=== PATIENT | male | born 1955 | race Caucasian/White ===

== ENCOUNTER 2019-05-30 15:43 | Inpatient (IN) | payer OTHER ==
[~2019-05-30] VITALS: Ht 170.2 cm; Wt 74.8 kg
[2019-05-30 17:00] VITALS: BP 145/80
[2019-05-30] MEDS ORDERED: FLUT1DIS29 IH (18:59)
[2019-05-30] MEDS ORDERED: DULO60CA45 PO (18:59)
[2019-05-30] MEDS ORDERED: OLAN5TAB3 PO (18:59)
[2019-05-30 19:50] VITALS: BP 125/60
[2019-05-30] MEDS: OLANZAPINE 5 MG TABLET PO SCH (21:00)
[2019-05-30] MEDS ORDERED: OLANZAPINE 5 MG TABLET ONE (22:30)
[2019-05-31 04:49] LABS: *BILIRUBIN,URIN NEGATIVE (NEGATIVE); *BLOOD, URINE NEGATIVE (NEGATIVE); *CLARITY,URINE CLEAR (CLEAR); *COLOR,URINE YELLOW (YELLOW); *KETONES,URINE NEGATIVE (NEGATIVE); LEUKOCYTE ESTERASE ,URINE NEGATIVE (NEGATIVE); NITRITE, URINE NEGATIVE (NEGATIVE); PH,URINE 7.5 (5.0-8.0); UGLUCOSE NEGATIVE (NEGATIVE)
[2019-05-31 05:04] LABS: BACTERIA,URINE NONE SEEN /HPF (NONE SEEN); RBC,URINE 0-3 /HPF (0-3); SQUAMOUS EPITHELIAL CELL,UR FEW /HPF (NONE SEEN); WBC,URINE NONE SEEN /HPF (0-3)
[2019-05-31 05:52] VITALS: BP 150/78
[2019-05-31 06:53] LABS: BASOPHILS # (AUTO) 0.1 K/uL (0.0-8.0); BASOPHILS % (AUTO) 0.7 % (0.0-2.0); EOSINOPHILS # (AUTO) 0.4 K/uL (0.0-0.7); HEMATOCRIT 39.3 % (36.7-47.1); HEMOGLOBIN 13.8 g/dL (12.5-16.3); LYMPHOCYTES # (AUTO) 3.3 K/uL (20.0-40.0); LYMPHOCYTES % (AUTO) 28.6 % (20.5-51.5); MEAN CORPUSCULAR HEMOGLOBIN 28.8 uug (23.8-33.4); MEAN CORPUSCULAR HGB CONC 35 g/dL (32.5-36.3); MONOCYTES # (AUTO) 0.9 K/uL (2.0-10.0); MONOCYTES % (AUTO) 7.7 % (0.0-11.0); PLATELET COUNT (AUTO) 187 K/uL (152-348); WHITE BLOOD COUNT (AUTO) 11.6 K/uL (3.6-10.2)
[2019-05-31 07:08] LABS: THYROID STIMULATING HORMONE 3.923 mIU/mL (0.358-3.740)
[2019-05-31 07:24] LABS: BILIRUBIN,TOTAL 0.5 mg/dL (0.2-1.0); CREATININE 0.8 mg/dL (0.6-1.3); POTASSIUM 3.9 mmol/L (3.5-5.1); TOTAL PROTEIN, SERUM 7.1 g/dL (6.4-8.2)
[2019-05-31] MEDS ORDERED: FLUTICASONE/SALMETEROL 500/50 EACH DISK.W.DEV IH SCH (09:00)
[2019-05-31] MEDS ORDERED: METHADONE HCL 10 MG TABLET PO SCH ×3 (09:00→17:00)
[2019-05-31] MEDS: METHADONE HCL 10 MG TABLET PO SCH ×2 (09:30→17:11)
[2019-05-31] MEDS: DULOXETINE 60 MG CAPSULE.DR PO SCH (09:30)
[2019-05-31] MEDS: FLUTICASONE/VILANTEROL 1 EACH BLST.W.DEV INH SCH (09:30)
[2019-05-31] MEDS: ATORVASTATIN 20 MG TABLET PO SCH (20:18)
[2019-05-31] MEDS: ENOXAPARIN SODIUM 40 MG/0.4 ML DISP.SYRIN SQ SCH (20:19)
[2019-05-31] MEDS: OLANZAPINE 5 MG TABLET PO SCH (20:19)
[2019-05-31 20:33] VITALS: BP 129/77
[2019-06-01] MEDS ORDERED: LORAZEPAM 1 MG TABLET PO ONE (03:00)
[2019-06-01] MEDS ORDERED: IBUPROFEN 600 MG TABLET PO ONE (03:00)
[2019-06-01 05:27] VITALS: BP 140/63
[2019-06-01 08:06] LABS: TRIIODOTHYRONINE, FREE 2.8 pg/mL (2.0-4.4)
[2019-06-01] MEDS: DULOXETINE 60 MG CAPSULE.DR PO SCH (09:09)
[2019-06-01] MEDS: METHADONE HCL 10 MG TABLET PO SCH ×2 (09:12→17:22)
[2019-06-01] MEDS: FLUTICASONE/VILANTEROL 1 EACH BLST.W.DEV INH SCH (09:13)
[2019-06-01 11:33] VITALS: BP 138/82
[2019-06-01] MEDS: ENOXAPARIN SODIUM 40 MG/0.4 ML DISP.SYRIN SQ SCH (21:18)
[2019-06-01] MEDS: ATORVASTATIN 20 MG TABLET PO SCH (21:18)
[2019-06-01] MEDS: OLANZAPINE 5 MG TABLET PO SCH (21:18)
[2019-06-01 21:43] VITALS: BP 118/65
[2019-06-02] MEDS: OXYCODONE HCL 5 MG TABLET PO PRN ×2 (00:46→09:09)
[2019-06-02] MEDS ORDERED: TRAZODONE 100 MG TABLET ONE (01:20)
[2019-06-02] MEDS: TRAZODONE 100 MG TABLET PO SCH ×2 (01:28→21:00)
[2019-06-02] MEDS: ALBUTEROL SULFATE 2.5 MG/ 0.5 ML NEBU NEB SCH ×5 (07:35→19:24)
[2019-06-02] MEDS: IPRATROPIUM BROMIDE 0.5 MG/2.5 ML NEBU NEB SCH ×5 (07:35→19:24)
[2019-06-02 07:50] VITALS: BP 111/54
[2019-06-02] MEDS: DULOXETINE 60 MG CAPSULE.DR PO SCH (09:01)
[2019-06-02] MEDS: FLUTICASONE/VILANTEROL 1 EACH BLST.W.DEV INH SCH (09:02)
[2019-06-02] MEDS: METHADONE HCL 10 MG TABLET PO SCH ×2 (09:05→17:18)
[2019-06-02 15:59] VITALS: BP 112/61
[2019-06-02] MEDS: ENOXAPARIN SODIUM 40 MG/0.4 ML DISP.SYRIN SQ SCH (21:00)
[2019-06-02] MEDS: ATORVASTATIN 20 MG TABLET PO SCH (21:00)
[2019-06-02] MEDS: OLANZAPINE 5 MG TABLET PO SCH (21:00)
[2019-06-02 21:32] VITALS: BP 124/76
[2019-06-03 05:53] VITALS: BP 142/75
[2019-06-03] MEDS: ALBUTEROL SULFATE 2.5 MG/ 0.5 ML NEBU NEB SCH ×3 (07:16→19:08)
[2019-06-03] MEDS: IPRATROPIUM BROMIDE 0.5 MG/2.5 ML NEBU NEB SCH ×3 (07:16→19:07)
[2019-06-03] MEDS ORDERED: GUAIFENESIN/DEXTROMETHORPHAN 5 ML UDC PO PRN (08:15)
[2019-06-03] MEDS: DULOXETINE 60 MG CAPSULE.DR PO SCH (08:38)
[2019-06-03] MEDS: METHADONE HCL 10 MG TABLET PO SCH ×2 (08:38→18:22)
[2019-06-03] MEDS: FLUTICASONE/VILANTEROL 1 EACH BLST.W.DEV INH SCH (08:50)
[2019-06-03 09:20] VITALS: BP 100/61
[2019-06-03 11:10] LABS: *ANTI-SCLERODERMA-70 AB 0.2 AI (0.0-0.9); *SJOGREN'S ANTI-SS-A <0.2 AI (0.0-0.9); *SJOGREN'S ANTI-SS-B <0.2 AI (0.0-0.9); *SMITH ANTIBODIES <0.2 AI (0.0-0.9); ANTI-DNA(DS) AB, QN <1 IU/mL (0-9)
[2019-06-03] MEDS: OXYCODONE HCL 5 MG TABLET PO PRN ×2 (15:09→23:13)
[2019-06-03] MEDS ORDERED: MIRALAX 17 GM POWD.PACK PO PRN (16:00)
[2019-06-03] MEDS ORDERED: FLEET ENEMA 133 ML BOTTLE RC ONE (16:45)
[2019-06-03 18:08] VITALS: BP 123/76
[2019-06-03 20:29] VITALS: BP 137/76
[2019-06-03] MEDS: OLANZAPINE 5 MG TABLET PO SCH (21:32)
[2019-06-03] MEDS: TRAZODONE 100 MG TABLET PO SCH (21:32)
[2019-06-03] MEDS: ATORVASTATIN 20 MG TABLET PO SCH (21:32)
[2019-06-03] MEDS: DOCUSATE SODIUM 100 MG CAPSULE PO SCH (21:32)
[2019-06-03] MEDS: ENOXAPARIN SODIUM 40 MG/0.4 ML DISP.SYRIN SQ SCH (21:33)
[2019-06-04 05:29] VITALS: BP 122/72
[2019-06-04] MEDS: PANTOPRAZOLE SODIUM 40 MG TABLET.DR PO SCH (06:07)
[2019-06-04] MEDS: ALBUTEROL SULFATE 2.5 MG/ 0.5 ML NEBU NEB SCH ×3 (08:53→19:32)
[2019-06-04] MEDS: IPRATROPIUM BROMIDE 0.5 MG/2.5 ML NEBU NEB SCH ×3 (08:53→19:32)
[2019-06-04] MEDS: METHADONE HCL 10 MG TABLET PO SCH ×2 (09:30→17:19)
[2019-06-04] MEDS: DULOXETINE 60 MG CAPSULE.DR PO SCH (09:31)
[2019-06-04] MEDS: MIRALAX 17 GM POWD.PACK PO SCH (09:40)
[2019-06-04] MEDS: DOCUSATE SODIUM 100 MG CAPSULE PO SCH ×2 (09:40→20:36)
[2019-06-04] MEDS: GUAIFENESIN LA 600 MG TABLET.SA PO SCH ×2 (10:53→20:36)
[2019-06-04] MEDS: FLUTICASONE/VILANTEROL 1 EACH BLST.W.DEV INH SCH (10:54)
[2019-06-04] MEDS: OXYCODONE HCL 5 MG TABLET PO PRN ×2 (11:59→20:37)
[2019-06-04 16:13] VITALS: BP 120/63
[2019-06-04] MEDS: ACETYLCYSTEINE 20% 800 MG/4 ML VIAL NEB SCH (19:30)
[2019-06-04 20:07] LABS: MYCOPLASMA PNEUMONIAE IgM <770 U/mL (0-769)
[2019-06-04 20:33] VITALS: BP 110/69
[2019-06-04] MEDS: ATORVASTATIN 20 MG TABLET PO SCH (20:36)
[2019-06-04] MEDS: TRAZODONE 100 MG TABLET PO SCH (21:00)
[2019-06-04] MEDS: ENOXAPARIN SODIUM 40 MG/0.4 ML DISP.SYRIN SQ SCH (21:00)
[2019-06-04] MEDS: OLANZAPINE 5 MG TABLET PO SCH (21:00)
[2019-06-05 05:38] VITALS: BP 117/62
[2019-06-05] MEDS: PANTOPRAZOLE SODIUM 40 MG TABLET.DR PO SCH (07:03)
[2019-06-05] MEDS: ACETYLCYSTEINE 20% 800 MG/4 ML VIAL NEB SCH ×2 (07:30→19:09)
[2019-06-05] MEDS: IPRATROPIUM BROMIDE 0.5 MG/2.5 ML NEBU NEB SCH ×3 (07:35→19:09)
[2019-06-05] MEDS: ALBUTEROL SULFATE 2.5 MG/ 0.5 ML NEBU NEB SCH ×3 (07:35→19:09)
[2019-06-05 08:07] LABS: IMMUNOGLOBULIN M, SERUM 209 mg/dL (20-172)
[2019-06-05] MEDS: FLUTICASONE/VILANTEROL 1 EACH BLST.W.DEV INH SCH (09:06)
[2019-06-05] MEDS: METHADONE HCL 10 MG TABLET PO SCH ×2 (09:07→16:15)
[2019-06-05] MEDS: OXYCODONE HCL 5 MG TABLET PO PRN ×3 (09:07→22:57)
[2019-06-05] MEDS: MIRALAX 17 GM POWD.PACK PO SCH (09:08)
[2019-06-05] MEDS: DULOXETINE 60 MG CAPSULE.DR PO SCH (09:08)
[2019-06-05] MEDS: DOCUSATE SODIUM 100 MG CAPSULE PO SCH ×2 (09:08→20:24)
[2019-06-05] MEDS: GUAIFENESIN LA 600 MG TABLET.SA PO SCH ×2 (09:08→20:24)
[2019-06-05 10:06] LABS: IMMUNOGLOBULIN E, TOTAL 25 IU/mL (6-495)
[2019-06-05 11:11] LABS: A/G RATIO 1.1 (0.7-1.7); ALBUMIN 3.4 g/dL (2.9-4.4); ALPHA-1-GLOBULIN 0.3 g/dL (0.0-0.4); ALPHA-2-GLOBULIN 0.8 g/dL (0.4-1.0); BETA GLOBULIN 1.1 g/dL (0.7-1.3); GAMMA GLOBULIN 1.1 g/dL (0.4-1.8); GLOBULIN, TOTAL 3.2 g/dL (2.2-3.9); M-SPIKE Not Observed g/dL (Not Observed)
[2019-06-05 15:42] VITALS: BP 115/80
[2019-06-05] MEDS: TRAZODONE 100 MG TABLET PO SCH (20:24)
[2019-06-05] MEDS: OLANZAPINE 5 MG TABLET PO SCH (20:24)
[2019-06-05] MEDS: ATORVASTATIN 20 MG TABLET PO SCH (20:24)
[2019-06-05] MEDS: EZETIMIBE 10 MG TABLET PO SCH (20:24)
[2019-06-05] MEDS: ENOXAPARIN SODIUM 40 MG/0.4 ML DISP.SYRIN SQ SCH (20:27)
[2019-06-05 21:03] VITALS: BP 119/65
[2019-06-06] MEDS: PANTOPRAZOLE SODIUM 40 MG TABLET.DR PO SCH (06:25)
[2019-06-06 07:04] VITALS: BP 102/65
[2019-06-06] MEDS: IPRATROPIUM BROMIDE 0.5 MG/2.5 ML NEBU NEB SCH ×3 (07:12→19:18)
[2019-06-06] MEDS: ACETYLCYSTEINE 20% 800 MG/4 ML VIAL NEB SCH ×2 (07:12→19:18)
[2019-06-06] MEDS: ALBUTEROL SULFATE 2.5 MG/ 0.5 ML NEBU NEB SCH ×3 (07:13→19:18)
[2019-06-06] MEDS: GUAIFENESIN LA 600 MG TABLET.SA PO SCH ×3 (09:00→20:39)
[2019-06-06 09:06] LABS: CRYPTOCOCCUS AB, SERUM Negative (Negative)
[2019-06-06] MEDS: FLUTICASONE/VILANTEROL 1 EACH BLST.W.DEV INH SCH (09:15)
[2019-06-06] MEDS: DULOXETINE 60 MG CAPSULE.DR PO SCH (09:16)
[2019-06-06] MEDS: METHADONE HCL 10 MG TABLET PO SCH ×2 (09:16→17:54)
[2019-06-06] MEDS: MIRALAX 17 GM POWD.PACK PO SCH (09:16)
[2019-06-06] MEDS: DOCUSATE SODIUM 100 MG CAPSULE PO SCH ×2 (09:16→20:34)
[2019-06-06 10:07] LABS: *IGG SUBCLASS 1 444 mg/dL (248-810); *IGG SUBCLASS 2 369 mg/dL (130-555); *IGG SUBCLASS 3 57 mg/dL (15-102); *IGG SUBCLASS 4 <0 mg/dL (2-96); *IMMUNOGLOBULIN G, SERUM 954 mg/dL (700-1600)
[2019-06-06] MEDS ORDERED: LACTULOSE 20 G/30 ML LIQUID UDC PO PRN (10:45)
[2019-06-06] MEDS ORDERED: BISACODYL 10 MG SUPP.RECT RC PRN (10:45)
[2019-06-06] MEDS ORDERED: BISACODYL 10 MG SUPP.RECT RC ONE (12:00)
[2019-06-06] MEDS ORDERED: MAGNESIUM CITRATE 296 ML BOTTLE PO ONE (12:00)
[2019-06-06 12:06] LABS: CALCITRIOL VIT D,1,25 DIHYDROX 48.8 pg/mL (19.9-79.3)
[2019-06-06] MEDS: OXYCODONE HCL 5 MG TABLET PO PRN ×2 (15:42→22:19)
[2019-06-06 16:03] VITALS: BP 112/72
[2019-06-06 19:49] VITALS: BP 114/60
[2019-06-06] MEDS: ENOXAPARIN SODIUM 40 MG/0.4 ML DISP.SYRIN SQ SCH (20:31)
[2019-06-06] MEDS: EZETIMIBE 10 MG TABLET PO SCH (20:34)
[2019-06-06] MEDS: ATORVASTATIN 20 MG TABLET PO SCH (20:34)
[2019-06-06] MEDS: TRAZODONE 100 MG TABLET PO SCH (20:34)
[2019-06-06] MEDS: OLANZAPINE 5 MG TABLET PO SCH (20:40)
[2019-06-07 05:42] VITALS: BP 120/66
[2019-06-07] MEDS: PANTOPRAZOLE SODIUM 40 MG TABLET.DR PO SCH (06:54)
[2019-06-07] MEDS: ACETYLCYSTEINE 20% 800 MG/4 ML VIAL NEB SCH ×2 (07:15→20:18)
[2019-06-07] MEDS: ALBUTEROL SULFATE 2.5 MG/ 0.5 ML NEBU NEB SCH ×2 (07:16→20:17)
[2019-06-07] MEDS: IPRATROPIUM BROMIDE 0.5 MG/2.5 ML NEBU NEB SCH ×2 (07:16→20:17)
[2019-06-07 08:34] VITALS: BP 123/74
[2019-06-07 08:52] LABS: *BILIRUBIN,URIN NEGATIVE (NEGATIVE); *BLOOD, URINE NEGATIVE (NEGATIVE); *CLARITY,URINE CLEAR (CLEAR); *COLOR,URINE LIGHT YELLOW (YELLOW); *KETONES,URINE NEGATIVE (NEGATIVE); *UROBILINOGEN,URINE 0.2 E.U./dl (NORMAL); LEUKOCYTE ESTERASE ,URINE NEGATIVE (NEGATIVE); NITRITE, URINE NEGATIVE (NEGATIVE); PH,URINE 6.5 (5.0-8.0); UGLUCOSE NEGATIVE (NEGATIVE)
[2019-06-07] MEDS: FLUTICASONE/VILANTEROL 1 EACH BLST.W.DEV INH SCH (08:53)
[2019-06-07] MEDS: DULOXETINE 60 MG CAPSULE.DR PO SCH (08:54)
[2019-06-07] MEDS: GUAIFENESIN LA 600 MG TABLET.SA PO SCH ×3 (08:54→21:00)
[2019-06-07] MEDS: DOCUSATE SODIUM 100 MG CAPSULE PO SCH ×2 (08:55→20:33)
[2019-06-07] MEDS: METHADONE HCL 10 MG TABLET PO SCH ×2 (08:57→17:11)
[2019-06-07] MEDS: MIRALAX 17 GM POWD.PACK PO SCH (08:57)
[2019-06-07 16:04] VITALS: BP 112/69
[2019-06-07] MEDS: ATORVASTATIN 20 MG TABLET PO SCH (20:33)
[2019-06-07] MEDS: TRAZODONE 100 MG TABLET PO SCH (20:33)
[2019-06-07] MEDS: EZETIMIBE 10 MG TABLET PO SCH (20:33)
[2019-06-07] MEDS: OLANZAPINE 5 MG TABLET PO SCH (20:33)
[2019-06-07] MEDS: OXYCODONE HCL 5 MG TABLET PO PRN (20:34)
[2019-06-07 20:39] VITALS: BP 114/76
[2019-06-07] MEDS: ENOXAPARIN SODIUM 40 MG/0.4 ML DISP.SYRIN SQ SCH (20:40)
[2019-06-08 05:54] VITALS: BP 123/67
[2019-06-08] MEDS: PANTOPRAZOLE SODIUM 40 MG TABLET.DR PO SCH (06:28)
[2019-06-08] MEDS: ACETYLCYSTEINE 20% 800 MG/4 ML VIAL NEB SCH ×2 (07:30→21:14)
[2019-06-08] MEDS: ALBUTEROL SULFATE 2.5 MG/ 0.5 ML NEBU NEB SCH ×3 (07:35→21:14)
[2019-06-08] MEDS: IPRATROPIUM BROMIDE 0.5 MG/2.5 ML NEBU NEB SCH ×3 (07:35→21:14)
[2019-06-08] MEDS: FLUTICASONE/VILANTEROL 1 EACH BLST.W.DEV INH SCH ×2 (09:00→09:36)
[2019-06-08] MEDS: GUAIFENESIN LA 600 MG TABLET.SA PO SCH ×3 (09:00→20:38)
[2019-06-08] MEDS: MIRALAX 17 GM POWD.PACK PO SCH ×2 (09:00→09:36)
[2019-06-08] MEDS: METHADONE HCL 10 MG TABLET PO SCH ×2 (09:35→16:12)
[2019-06-08] MEDS: DOCUSATE SODIUM 100 MG CAPSULE PO SCH ×2 (09:35→20:37)
[2019-06-08] MEDS: DULOXETINE 60 MG CAPSULE.DR PO SCH (09:36)
[2019-06-08 16:02] VITALS: BP 123/70
[2019-06-08] MEDS: OXYCODONE HCL 5 MG TABLET PO PRN (17:24)
[2019-06-08] MEDS: CYCLOBENZAPRINE HCL 10 MG TABLET PO PRN (18:58)
[2019-06-08 20:08] VITALS: BP 103/73
[2019-06-08] MEDS: ATORVASTATIN 20 MG TABLET PO SCH (20:37)
[2019-06-08] MEDS: TRAZODONE 100 MG TABLET PO SCH (20:37)
[2019-06-08] MEDS: EZETIMIBE 10 MG TABLET PO SCH (20:37)
[2019-06-08] MEDS: OLANZAPINE 5 MG TABLET PO SCH (20:37)
[2019-06-08] MEDS: ENOXAPARIN SODIUM 40 MG/0.4 ML DISP.SYRIN SQ SCH (20:45)
[2019-06-09] MEDS: PANTOPRAZOLE SODIUM 40 MG TABLET.DR PO SCH (06:13)
[2019-06-09] MEDS: DULOXETINE 60 MG CAPSULE.DR PO SCH (08:26)
[2019-06-09] MEDS: DOCUSATE SODIUM 100 MG CAPSULE PO SCH ×2 (08:26→20:17)
[2019-06-09] MEDS: METHADONE HCL 10 MG TABLET PO SCH ×2 (08:26→17:17)
[2019-06-09] MEDS: FLUTICASONE/VILANTEROL 1 EACH BLST.W.DEV INH SCH (08:27)
[2019-06-09] MEDS: CYCLOBENZAPRINE HCL 10 MG TABLET PO PRN (08:27)
[2019-06-09] MEDS: MIRALAX 17 GM POWD.PACK PO SCH (08:27)
[2019-06-09] MEDS: GUAIFENESIN LA 600 MG TABLET.SA PO SCH ×2 (08:30→20:17)
[2019-06-09 08:38] LABS: BASOPHILS % (AUTO) 0.4 % (0.0-2.0); EOSINOPHILS # (AUTO) 0.2 K/uL (0.0-0.7); HEMATOCRIT 37.6 % (36.7-47.1); HEMOGLOBIN 13.2 g/dL (12.5-16.3); LYMPHOCYTES # (AUTO) 2.9 K/uL (20.0-40.0); LYMPHOCYTES % (AUTO) 28.6 % (20.5-51.5); MEAN CORPUSCULAR HEMOGLOBIN 28.5 uug (23.8-33.4); MEAN CORPUSCULAR HGB CONC 35 g/dL (32.5-36.3); MEAN CORPUSCULAR VOLUME 81.2 fL (73.0-96.2); MONOCYTES # (AUTO) 0.9 K/uL (2.0-10.0); MONOCYTES % (AUTO) 9.1 % (0.0-11.0); NEUTROPHILS # (AUTO) 6.1 K/uL (1.8-8.9); NEUTROPHILS % (AUTO) 59.9 % (38.5-71.5); PLATELET COUNT (AUTO) 155 K/uL (152-348); RED BLOOD CELL COUNT(AUTO) 4.63 MIL/uL (4.06-5.63); WHITE BLOOD COUNT (AUTO) 10.2 K/uL (3.6-10.2)
[2019-06-09] MEDS: ALBUTEROL SULFATE 2.5 MG/ 0.5 ML NEBU NEB SCH ×3 (08:47→20:30)
[2019-06-09] MEDS: ACETYLCYSTEINE 20% 800 MG/4 ML VIAL NEB SCH ×2 (08:47→20:30)
[2019-06-09] MEDS: IPRATROPIUM BROMIDE 0.5 MG/2.5 ML NEBU NEB SCH ×3 (08:47→20:30)
[2019-06-09 08:54] LABS: CREATININE 0.9 mg/dL (0.6-1.3); MAGNESIUM 1.8 mg/dL (1.8-2.4); PHOSPHOROUS 4.9 mg/dL (2.5-4.9); POTASSIUM 3.9 mmol/L (3.5-5.1)
[2019-06-09] MEDS: OXYCODONE HCL 5 MG TABLET PO PRN (10:46)
[2019-06-09 15:20] VITALS: BP 117/73
[2019-06-09 19:55] VITALS: BP 103/64
[2019-06-09] MEDS ORDERED: OXYCODONE HCL 40 MG TAB.SR.12H PO SCH (20:00)
[2019-06-09] MEDS: ENOXAPARIN SODIUM 40 MG/0.4 ML DISP.SYRIN SQ SCH (20:16)
[2019-06-09] MEDS: TRAZODONE 100 MG TABLET PO SCH (20:17)
[2019-06-09] MEDS: OLANZAPINE 5 MG TABLET PO SCH (20:17)
[2019-06-09] MEDS: EZETIMIBE 10 MG TABLET PO SCH (20:17)
[2019-06-09] MEDS: ATORVASTATIN 20 MG TABLET PO SCH (20:17)
[2019-06-09] MEDS: OXYCODONE HCL 40 MG TAB.SR.12H PO SCH (23:09)
[2019-06-10] MEDS: PANTOPRAZOLE SODIUM 40 MG TABLET.DR PO SCH (06:02)
[2019-06-10] MEDS: OXYCODONE HCL 40 MG TAB.SR.12H PO SCH ×4 (06:04→23:08)
[2019-06-10 06:11] VITALS: BP 123/69
[2019-06-10] MEDS: IPRATROPIUM BROMIDE 0.5 MG/2.5 ML NEBU NEB SCH ×3 (07:24→19:38)
[2019-06-10] MEDS: ALBUTEROL SULFATE 2.5 MG/ 0.5 ML NEBU NEB SCH ×3 (07:24→19:38)
[2019-06-10] MEDS: ACETYLCYSTEINE 20% 800 MG/4 ML VIAL NEB SCH ×2 (07:24→19:38)
[2019-06-10 07:58] VITALS: BP 116/62
[2019-06-10] MEDS: GUAIFENESIN LA 600 MG TABLET.SA PO SCH ×2 (09:00→21:00)
[2019-06-10] MEDS: MIRALAX 17 GM POWD.PACK PO SCH (09:04)
[2019-06-10] MEDS: DOCUSATE SODIUM 100 MG CAPSULE PO SCH ×2 (09:10→21:12)
[2019-06-10] MEDS: FLUTICASONE/VILANTEROL 1 EACH BLST.W.DEV INH SCH (09:10)
[2019-06-10] MEDS: CYCLOBENZAPRINE HCL 10 MG TABLET PO PRN (09:10)
[2019-06-10] MEDS: DULOXETINE 60 MG CAPSULE.DR PO SCH (09:10)
[2019-06-10 16:44] VITALS: BP 99/64
[2019-06-10] MEDS: OLANZAPINE 5 MG TABLET PO SCH (21:00)
[2019-06-10] MEDS: ATORVASTATIN 20 MG TABLET PO SCH (21:13)
[2019-06-10] MEDS: TRAZODONE 100 MG TABLET PO SCH (21:13)
[2019-06-10] MEDS: EZETIMIBE 10 MG TABLET PO SCH (21:13)
[2019-06-10] MEDS: ENOXAPARIN SODIUM 40 MG/0.4 ML DISP.SYRIN SQ SCH (21:41)
[2019-06-10 22:11] VITALS: BP 121/64
[2019-06-11 04:56] VITALS: BP 110/56
[2019-06-11] MEDS: PANTOPRAZOLE SODIUM 40 MG TABLET.DR PO SCH (06:22)
[2019-06-11] MEDS: OXYCODONE HCL 40 MG TAB.SR.12H PO SCH ×3 (06:22→17:32)
[2019-06-11 08:32] VITALS: BP 105/55
[2019-06-11] MEDS: DOCUSATE SODIUM 100 MG CAPSULE PO SCH ×2 (09:22→20:42)
[2019-06-11] MEDS: GUAIFENESIN LA 600 MG TABLET.SA PO SCH ×2 (09:23→20:48)
[2019-06-11] MEDS: MIRALAX 17 GM POWD.PACK PO SCH (09:23)
[2019-06-11] MEDS: MULTIVITAMINS,THERAPEUTIC TABLET PO SCH (09:23)
[2019-06-11] MEDS: FLUTICASONE/VILANTEROL 1 EACH BLST.W.DEV INH SCH (09:23)
[2019-06-11] MEDS: DULOXETINE 60 MG CAPSULE.DR PO SCH (09:24)
[2019-06-11] MEDS: ACETYLCYSTEINE 20% 800 MG/4 ML VIAL NEB SCH ×2 (11:29→19:47)
[2019-06-11] MEDS: ALBUTEROL SULFATE 2.5 MG/ 0.5 ML NEBU NEB SCH ×3 (11:30→19:47)
[2019-06-11] MEDS: IPRATROPIUM BROMIDE 0.5 MG/2.5 ML NEBU NEB SCH ×3 (11:30→19:47)
[2019-06-11 16:20] VITALS: BP 96/73
[2019-06-11] MEDS ORDERED: LIDOCAINE-MPF 1% 5 ML AMPUL MC PRN (17:45)
[2019-06-11] MEDS ORDERED: TRIAMCINOLONE ACETONIDE 40 MG/1 ML VIAL IM ONE (17:45)
[2019-06-11] MEDS: EZETIMIBE 10 MG TABLET PO SCH (20:42)
[2019-06-11] MEDS: TRAZODONE 100 MG TABLET PO SCH (20:42)
[2019-06-11] MEDS: ATORVASTATIN 20 MG TABLET PO SCH (20:42)
[2019-06-11] MEDS: OLANZAPINE 5 MG TABLET PO SCH (20:42)
[2019-06-11] MEDS: ENOXAPARIN SODIUM 40 MG/0.4 ML DISP.SYRIN SQ SCH (20:45)
[2019-06-11 20:55] VITALS: BP 117/76
[2019-06-12] MEDS ORDERED: METHADONE HCL 10 MG TABLET PO SCH
[2019-06-12 05:00] VITALS: BP 130/62
[2019-06-12] MEDS: PANTOPRAZOLE SODIUM 40 MG TABLET.DR PO SCH ×2 (06:38→06:53)
[2019-06-12] MEDS: ALBUTEROL SULFATE 2.5 MG/ 0.5 ML NEBU NEB SCH ×3 (08:07→20:09)
[2019-06-12] MEDS: IPRATROPIUM BROMIDE 0.5 MG/2.5 ML NEBU NEB SCH ×3 (08:07→20:09)
[2019-06-12] MEDS: ACETYLCYSTEINE 20% 800 MG/4 ML VIAL NEB SCH ×2 (08:07→20:09)
[2019-06-12] MEDS: GUAIFENESIN LA 600 MG TABLET.SA PO SCH ×2 (09:33→20:28)
[2019-06-12] MEDS: MULTIVITAMINS,THERAPEUTIC TABLET PO SCH (09:33)
[2019-06-12] MEDS: FLUTICASONE/VILANTEROL 1 EACH BLST.W.DEV INH SCH (09:34)
[2019-06-12] MEDS: DOCUSATE SODIUM 100 MG CAPSULE PO SCH ×2 (09:34→20:22)
[2019-06-12] MEDS: DULOXETINE 60 MG CAPSULE.DR PO SCH (09:34)
[2019-06-12] MEDS: MIRALAX 17 GM POWD.PACK PO SCH (09:35)
[2019-06-12] MEDS: METHADONE HCL 10 MG TABLET PO SCH ×2 (11:00→22:48)
[2019-06-12 15:57] VITALS: BP 118/77
[2019-06-12 20:01] VITALS: BP 116/59
[2019-06-12] MEDS: ATORVASTATIN 20 MG TABLET PO SCH (20:22)
[2019-06-12] MEDS: OLANZAPINE 5 MG TABLET PO SCH (20:23)
[2019-06-12] MEDS: EZETIMIBE 10 MG TABLET PO SCH (20:23)
[2019-06-12] MEDS: TRAZODONE 100 MG TABLET PO SCH (20:23)
[2019-06-12] MEDS: ENOXAPARIN SODIUM 40 MG/0.4 ML DISP.SYRIN SQ SCH (20:28)
[2019-06-13] MEDS: PANTOPRAZOLE SODIUM 40 MG TABLET.DR PO SCH (06:50)
[2019-06-13 06:56] VITALS: BP 119/51
[2019-06-13] MEDS: ALBUTEROL SULFATE 2.5 MG/ 0.5 ML NEBU NEB SCH ×3 (08:22→20:45)
[2019-06-13] MEDS: IPRATROPIUM BROMIDE 0.5 MG/2.5 ML NEBU NEB SCH ×3 (08:22→20:45)
[2019-06-13] MEDS: ACETYLCYSTEINE 20% 800 MG/4 ML VIAL NEB SCH ×2 (08:22→20:45)
[2019-06-13] MEDS: GUAIFENESIN LA 600 MG TABLET.SA PO SCH ×2 (09:00→20:59)
[2019-06-13] MEDS: FLUTICASONE/VILANTEROL 1 EACH BLST.W.DEV INH SCH (09:45)
[2019-06-13] MEDS: DULOXETINE 60 MG CAPSULE.DR PO SCH (09:45)
[2019-06-13] MEDS: MIRALAX 17 GM POWD.PACK PO SCH (09:45)
[2019-06-13] MEDS: MULTIVITAMINS,THERAPEUTIC TABLET PO SCH (09:46)
[2019-06-13] MEDS: DOCUSATE SODIUM 100 MG CAPSULE PO SCH ×2 (09:46→20:53)
[2019-06-13] MEDS: METHADONE HCL 10 MG TABLET PO SCH ×2 (11:11→22:43)
[2019-06-13] MEDS ORDERED: MAG HYDROX/AL HYDROX/SIMETH 30 ML LIQUID UDC PO PRN (17:15)
[2019-06-13] MEDS: MAG HYDROX/AL HYDROX/SIMETH 30 ML LIQUID UDC PO PRN (17:29)
[2019-06-13 18:06] LABS: BASOPHILS % (AUTO) 0.2 % (0.0-2.0); EOSINOPHILS # (AUTO) 0.1 K/uL (0.0-0.7); EOSINOPHILS % (AUTO) 1.1 % (0.0-7.0); HEMATOCRIT 39.6 % (36.7-47.1); HEMOGLOBIN 13.1 g/dL (12.5-16.3); LYMPHOCYTES % (AUTO) 16.3 % (20.5-51.5); MEAN CORPUSCULAR HEMOGLOBIN 27.8 uug (23.8-33.4); MEAN CORPUSCULAR HGB CONC 33 g/dL (32.5-36.3); MEAN CORPUSCULAR VOLUME 83.8 fL (73.0-96.2); MONOCYTES # (AUTO) 1.1 K/uL (2.0-10.0); NEUTROPHILS # (AUTO) 9.2 K/uL (1.8-8.9); NEUTROPHILS % (AUTO) 73.4 % (38.5-71.5); PLATELET COUNT (AUTO) 179 K/uL (152-348); RED BLOOD CELL COUNT(AUTO) 4.73 MIL/uL (4.06-5.63); WHITE BLOOD COUNT (AUTO) 12.5 K/uL (3.6-10.2)
[2019-06-13 18:25] LABS: CREATININE 0.9 mg/dL (0.6-1.3); POTASSIUM 4.2 mmol/L (3.5-5.1)
[2019-06-13 20:16] VITALS: BP 130/68
[2019-06-13] MEDS: TRAZODONE 100 MG TABLET PO SCH (20:54)
[2019-06-13] MEDS: ATORVASTATIN 20 MG TABLET PO SCH (20:54)
[2019-06-13] MEDS: EZETIMIBE 10 MG TABLET PO SCH (20:54)
[2019-06-13] MEDS: OLANZAPINE 5 MG TABLET PO SCH (20:55)
[2019-06-13] MEDS: ENOXAPARIN SODIUM 40 MG/0.4 ML DISP.SYRIN SQ SCH (20:59)
[2019-06-14 05:52] VITALS: BP 122/68
[2019-06-14] MEDS: PANTOPRAZOLE SODIUM 40 MG TABLET.DR PO SCH (06:04)
[2019-06-14] MEDS: ACETYLCYSTEINE 20% 800 MG/4 ML VIAL NEB SCH ×2 (07:30→20:00)
[2019-06-14] MEDS: IPRATROPIUM BROMIDE 0.5 MG/2.5 ML NEBU NEB SCH ×3 (07:35→20:00)
[2019-06-14] MEDS: ALBUTEROL SULFATE 2.5 MG/ 0.5 ML NEBU NEB SCH ×3 (07:36→20:00)
[2019-06-14] MEDS: DOCUSATE SODIUM 100 MG CAPSULE PO SCH ×2 (08:56→20:36)
[2019-06-14] MEDS: MULTIVITAMINS,THERAPEUTIC TABLET PO SCH (08:56)
[2019-06-14] MEDS: ASPIRIN EC 81 MG TABLET.DR PO SCH (08:56)
[2019-06-14] MEDS: MIRALAX 17 GM POWD.PACK PO SCH (08:56)
[2019-06-14] MEDS: DULOXETINE 60 MG CAPSULE.DR PO SCH (08:56)
[2019-06-14] MEDS: GUAIFENESIN LA 600 MG TABLET.SA PO SCH ×2 (08:56→20:45)
[2019-06-14] MEDS: FLUTICASONE/VILANTEROL 1 EACH BLST.W.DEV INH SCH (08:59)
[2019-06-14] MEDS: METHADONE HCL 10 MG TABLET PO SCH ×2 (11:18→23:02)
[2019-06-14 16:14] VITALS: BP 135/63
[2019-06-14] MEDS: OXYCODONE HCL 5 MG TABLET PO PRN (16:36)
[2019-06-14] MEDS: TRAZODONE 100 MG TABLET PO SCH (20:36)
[2019-06-14] MEDS: EZETIMIBE 10 MG TABLET PO SCH (20:36)
[2019-06-14] MEDS: ATORVASTATIN 20 MG TABLET PO SCH (20:36)
[2019-06-14] MEDS: ENOXAPARIN SODIUM 40 MG/0.4 ML DISP.SYRIN SQ SCH (20:37)
[2019-06-14] MEDS: OLANZAPINE 5 MG TABLET PO SCH (20:44)
[2019-06-14 21:03] VITALS: BP 136/78
[2019-06-15 06:00] VITALS: BP 125/79
[2019-06-15] MEDS: PANTOPRAZOLE SODIUM 40 MG TABLET.DR PO SCH (06:26)
[2019-06-15] MEDS: ACETYLCYSTEINE 20% 800 MG/4 ML VIAL NEB SCH ×3 (07:30→21:20)
[2019-06-15] MEDS: IPRATROPIUM BROMIDE 0.5 MG/2.5 ML NEBU NEB SCH ×4 (07:35→21:20)
[2019-06-15] MEDS: ALBUTEROL SULFATE 2.5 MG/ 0.5 ML NEBU NEB SCH ×4 (07:35→21:20)
[2019-06-15] MEDS: FLUTICASONE/VILANTEROL 1 EACH BLST.W.DEV INH SCH (07:53)
[2019-06-15] MEDS: MULTIVITAMINS,THERAPEUTIC TABLET PO SCH (07:54)
[2019-06-15] MEDS: DULOXETINE 60 MG CAPSULE.DR PO SCH (07:54)
[2019-06-15] MEDS: CYCLOBENZAPRINE HCL 10 MG TABLET PO PRN (07:54)
[2019-06-15] MEDS: ASPIRIN EC 81 MG TABLET.DR PO SCH (07:54)
[2019-06-15] MEDS: DOCUSATE SODIUM 100 MG CAPSULE PO SCH ×2 (07:54→20:23)
[2019-06-15] MEDS: GUAIFENESIN LA 600 MG TABLET.SA PO SCH ×2 (07:55→20:31)
[2019-06-15] MEDS: OXYCODONE HCL 5 MG TABLET PO PRN ×2 (07:55→16:51)
[2019-06-15] MEDS: MIRALAX 17 GM POWD.PACK PO SCH (07:55)
[2019-06-15 08:08] LABS: *TESTOSTERONE, SERUM 179 ng/dL (264-916)
[2019-06-15] MEDS: METHADONE HCL 10 MG TABLET PO SCH ×2 (11:07→22:58)
[2019-06-15 15:56] VITALS: BP 141/71
[2019-06-15] MEDS: EZETIMIBE 10 MG TABLET PO SCH (20:23)
[2019-06-15] MEDS: ATORVASTATIN 20 MG TABLET PO SCH (20:23)
[2019-06-15] MEDS: TRAZODONE 100 MG TABLET PO SCH (20:23)
[2019-06-15] MEDS: OLANZAPINE 5 MG TABLET PO SCH (20:24)
[2019-06-15] MEDS: ENOXAPARIN SODIUM 40 MG/0.4 ML DISP.SYRIN SQ SCH (20:30)
[2019-06-15 21:06] VITALS: BP 121/70
[2019-06-16 04:00] VITALS: BP 109/59
[2019-06-16] MEDS: OXYCODONE HCL 5 MG TABLET PO PRN ×2 (06:21→16:40)
[2019-06-16] MEDS: PANTOPRAZOLE SODIUM 40 MG TABLET.DR PO SCH (06:23)
[2019-06-16] MEDS: ACETYLCYSTEINE 20% 800 MG/4 ML VIAL NEB SCH ×2 (07:30→19:13)
[2019-06-16 08:00] VITALS: BP 135/74
[2019-06-16] MEDS: ALBUTEROL SULFATE 2.5 MG/ 0.5 ML NEBU NEB SCH ×3 (08:26→19:13)
[2019-06-16] MEDS: IPRATROPIUM BROMIDE 0.5 MG/2.5 ML NEBU NEB SCH ×3 (08:26→19:13)
[2019-06-16] MEDS: GUAIFENESIN LA 600 MG TABLET.SA PO SCH ×2 (09:00→21:15)
[2019-06-16] MEDS: FLUTICASONE/VILANTEROL 1 EACH BLST.W.DEV INH SCH (09:16)
[2019-06-16] MEDS: MULTIVITAMINS,THERAPEUTIC TABLET PO SCH (09:17)
[2019-06-16] MEDS: DOCUSATE SODIUM 100 MG CAPSULE PO SCH ×2 (09:17→21:12)
[2019-06-16] MEDS: DULOXETINE 60 MG CAPSULE.DR PO SCH (09:17)
[2019-06-16] MEDS: ASPIRIN EC 81 MG TABLET.DR PO SCH (09:17)
[2019-06-16] MEDS: MIRALAX 17 GM POWD.PACK PO SCH (09:18)
[2019-06-16] MEDS: CYCLOBENZAPRINE HCL 10 MG TABLET PO PRN ×2 (09:19→13:41)
[2019-06-16] MEDS: METHADONE HCL 10 MG TABLET PO SCH ×2 (10:54→23:09)
[2019-06-16 16:05] VITALS: BP 122/72
[2019-06-16] MEDS: MAG HYDROX/AL HYDROX/SIMETH 30 ML LIQUID UDC PO PRN (17:21)
[2019-06-16 21:06] VITALS: BP 133/70
[2019-06-16] MEDS: ATORVASTATIN 20 MG TABLET PO SCH (21:12)
[2019-06-16] MEDS: ENOXAPARIN SODIUM 40 MG/0.4 ML DISP.SYRIN SQ SCH (21:13)
[2019-06-16] MEDS: EZETIMIBE 10 MG TABLET PO SCH (21:14)
[2019-06-16] MEDS: TRAZODONE 100 MG TABLET PO SCH (21:14)
[2019-06-16] MEDS: OLANZAPINE 5 MG TABLET PO SCH (21:15)
[2019-06-17 04:25] VITALS: BP 131/72
[2019-06-17] MEDS: PANTOPRAZOLE SODIUM 40 MG TABLET.DR PO SCH (06:30)
[2019-06-17] MEDS: ACETYLCYSTEINE 20% 800 MG/4 ML VIAL NEB SCH ×2 (08:27→19:12)
[2019-06-17] MEDS: IPRATROPIUM BROMIDE 0.5 MG/2.5 ML NEBU NEB SCH ×3 (08:27→19:11)
[2019-06-17] MEDS: ALBUTEROL SULFATE 2.5 MG/ 0.5 ML NEBU NEB SCH ×3 (08:29→19:11)
[2019-06-17] MEDS: OXYCODONE HCL 5 MG TABLET PO PRN ×2 (08:55→17:01)
[2019-06-17] MEDS: CYCLOBENZAPRINE HCL 10 MG TABLET PO PRN ×2 (08:57→17:01)
[2019-06-17] MEDS: ASPIRIN EC 81 MG TABLET.DR PO SCH (08:57)
[2019-06-17] MEDS: MULTIVITAMINS,THERAPEUTIC TABLET PO SCH (08:57)
[2019-06-17] MEDS: DOCUSATE SODIUM 100 MG CAPSULE PO SCH ×2 (08:57→20:28)
[2019-06-17] MEDS: FLUTICASONE/VILANTEROL 1 EACH BLST.W.DEV INH SCH (08:58)
[2019-06-17] MEDS: GUAIFENESIN LA 600 MG TABLET.SA PO SCH ×2 (09:00→20:33)
[2019-06-17] MEDS: DULOXETINE 60 MG CAPSULE.DR PO SCH (09:05)
[2019-06-17] MEDS: MIRALAX 17 GM POWD.PACK PO SCH (09:05)
[2019-06-17 09:18] VITALS: BP 133/80
[2019-06-17] MEDS: METHADONE HCL 10 MG TABLET PO SCH ×2 (11:11→22:50)
[2019-06-17 16:31] VITALS: BP 117/60
[2019-06-17] MEDS: ATORVASTATIN 20 MG TABLET PO SCH (20:28)
[2019-06-17] MEDS: OLANZAPINE 5 MG TABLET PO SCH (20:28)
[2019-06-17] MEDS: EZETIMIBE 10 MG TABLET PO SCH (20:29)
[2019-06-17] MEDS: TRAZODONE 100 MG TABLET PO SCH (20:29)
[2019-06-17] MEDS: ENOXAPARIN SODIUM 40 MG/0.4 ML DISP.SYRIN SQ SCH (20:32)
[2019-06-17 21:33] VITALS: BP 119/71
[2019-06-18 05:04] VITALS: BP 125/69
[2019-06-18] MEDS: PANTOPRAZOLE SODIUM 40 MG TABLET.DR PO SCH (06:21)
[2019-06-18] MEDS: ACETYLCYSTEINE 20% 800 MG/4 ML VIAL NEB SCH ×2 (08:18→22:45)
[2019-06-18] MEDS: IPRATROPIUM BROMIDE 0.5 MG/2.5 ML NEBU NEB SCH ×3 (08:18→22:45)
[2019-06-18] MEDS: ALBUTEROL SULFATE 2.5 MG/ 0.5 ML NEBU NEB SCH ×3 (08:18→22:45)
[2019-06-18] MEDS: FLUTICASONE/VILANTEROL 1 EACH BLST.W.DEV INH SCH (08:45)
[2019-06-18] MEDS: ASPIRIN EC 81 MG TABLET.DR PO SCH (08:45)
[2019-06-18] MEDS: DULOXETINE 60 MG CAPSULE.DR PO SCH (08:45)
[2019-06-18] MEDS: MIRALAX 17 GM POWD.PACK PO SCH (08:45)
[2019-06-18] MEDS: MULTIVITAMINS,THERAPEUTIC TABLET PO SCH (08:45)
[2019-06-18] MEDS: OXYCODONE HCL 5 MG TABLET PO PRN ×2 (08:45→17:33)
[2019-06-18] MEDS: DOCUSATE SODIUM 100 MG CAPSULE PO SCH ×2 (08:45→20:33)
[2019-06-18] MEDS: GUAIFENESIN LA 600 MG TABLET.SA PO SCH ×2 (08:51→20:34)
[2019-06-18] MEDS: BISACODYL 10 MG SUPP.RECT RC PRN (10:34)
[2019-06-18] MEDS: METHADONE HCL 10 MG TABLET PO SCH ×2 (10:34→22:56)
[2019-06-18 19:59] VITALS: BP 114/66
[2019-06-18] MEDS: OLANZAPINE 5 MG TABLET PO SCH (20:33)
[2019-06-18] MEDS: EZETIMIBE 10 MG TABLET PO SCH (20:33)
[2019-06-18] MEDS: ATORVASTATIN 20 MG TABLET PO SCH (20:33)
[2019-06-18] MEDS: TRAZODONE 100 MG TABLET PO SCH (20:33)
[2019-06-18] MEDS: ENOXAPARIN SODIUM 40 MG/0.4 ML DISP.SYRIN SQ SCH (20:34)
[2019-06-19 06:01] VITALS: BP 100/72
[2019-06-19] MEDS: PANTOPRAZOLE SODIUM 40 MG TABLET.DR PO SCH (06:35)
[2019-06-19] MEDS: ACETYLCYSTEINE 20% 800 MG/4 ML VIAL NEB SCH ×2 (08:22→19:55)
[2019-06-19] MEDS: ALBUTEROL SULFATE 2.5 MG/ 0.5 ML NEBU NEB SCH ×3 (08:22→19:55)
[2019-06-19] MEDS: IPRATROPIUM BROMIDE 0.5 MG/2.5 ML NEBU NEB SCH ×3 (08:22→19:55)
[2019-06-19] MEDS: GUAIFENESIN LA 600 MG TABLET.SA PO SCH ×2 (09:00→20:25)
[2019-06-19] MEDS: MIRALAX 17 GM POWD.PACK PO SCH (09:00)
[2019-06-19] MEDS: OXYCODONE HCL 5 MG TABLET PO PRN ×2 (09:04→18:13)
[2019-06-19] MEDS: ASPIRIN EC 81 MG TABLET.DR PO SCH (09:06)
[2019-06-19] MEDS: DOCUSATE SODIUM 100 MG CAPSULE PO SCH ×2 (09:07→20:25)
[2019-06-19] MEDS: MULTIVITAMINS,THERAPEUTIC TABLET PO SCH (09:07)
[2019-06-19] MEDS: FLUTICASONE/VILANTEROL 1 EACH BLST.W.DEV INH SCH (09:07)
[2019-06-19] MEDS: DULOXETINE 60 MG CAPSULE.DR PO SCH (09:32)
[2019-06-19] MEDS: METHADONE HCL 10 MG TABLET PO SCH ×2 (11:37→22:49)
[2019-06-19 15:32] VITALS: BP 131/85
[2019-06-19 19:43] VITALS: BP 119/81
[2019-06-19] MEDS: EZETIMIBE 10 MG TABLET PO SCH (20:25)
[2019-06-19] MEDS: OLANZAPINE 5 MG TABLET PO SCH (20:25)
[2019-06-19] MEDS: ATORVASTATIN 20 MG TABLET PO SCH (20:25)
[2019-06-19] MEDS: TRAZODONE 100 MG TABLET PO SCH (20:25)
[2019-06-20 05:47] VITALS: BP 121/79
[2019-06-20] MEDS: PANTOPRAZOLE SODIUM 40 MG TABLET.DR PO SCH (06:35)
[2019-06-20] MEDS: ACETYLCYSTEINE 20% 800 MG/4 ML VIAL NEB SCH ×2 (07:09→20:28)
[2019-06-20] MEDS: ALBUTEROL SULFATE 2.5 MG/ 0.5 ML NEBU NEB SCH ×3 (07:10→19:45)
[2019-06-20] MEDS: IPRATROPIUM BROMIDE 0.5 MG/2.5 ML NEBU NEB SCH ×3 (07:10→19:45)
[2019-06-20] MEDS: MULTIVITAMINS,THERAPEUTIC TABLET PO SCH (08:59)
[2019-06-20] MEDS: DOCUSATE SODIUM 100 MG CAPSULE PO SCH ×2 (08:59→20:15)
[2019-06-20] MEDS: ASPIRIN EC 81 MG TABLET.DR PO SCH (09:00)
[2019-06-20] MEDS: GUAIFENESIN LA 600 MG TABLET.SA PO SCH ×2 (09:00→20:18)
[2019-06-20] MEDS: DULOXETINE 60 MG CAPSULE.DR PO SCH (09:00)
[2019-06-20] MEDS: MIRALAX 17 GM POWD.PACK PO SCH (09:00)
[2019-06-20] MEDS ORDERED: METHADONE HCL 10 MG TABLET PO SCH (09:00)
[2019-06-20] MEDS: FLUTICASONE/VILANTEROL 1 EACH BLST.W.DEV INH SCH (09:01)
[2019-06-20] MEDS: OXYCODONE HCL 5 MG TABLET PO PRN ×2 (11:41→17:55)
[2019-06-20] MEDS: OLANZAPINE 5 MG TABLET PO SCH (20:15)
[2019-06-20] MEDS: ATORVASTATIN 20 MG TABLET PO SCH (20:15)
[2019-06-20] MEDS: EZETIMIBE 10 MG TABLET PO SCH (20:15)
[2019-06-20] MEDS: TRAZODONE 100 MG TABLET PO SCH (20:15)
[2019-06-20] MEDS: METHADONE HCL 10 MG TABLET PO SCH (20:19)
[2019-06-20 21:03] VITALS: BP 119/74
[2019-06-21 06:00] VITALS: BP 131/77
[2019-06-21] MEDS: PANTOPRAZOLE SODIUM 40 MG TABLET.DR PO SCH (06:21)
[2019-06-21 07:07] LABS: BASOPHILS # (AUTO) 0.1 K/uL (0.0-8.0); EOSINOPHILS # (AUTO) 0.6 K/uL (0.0-0.7); EOSINOPHILS % (AUTO) 4.9 % (0.0-7.0); HEMATOCRIT 38.7 % (36.7-47.1); HEMOGLOBIN 13.1 g/dL (12.5-16.3); LYMPHOCYTES # (AUTO) 2.2 K/uL (20.0-40.0); LYMPHOCYTES % (AUTO) 17.8 % (20.5-51.5); MEAN CORPUSCULAR HEMOGLOBIN 28.4 uug (23.8-33.4); MEAN CORPUSCULAR HGB CONC 34 g/dL (32.5-36.3); MEAN CORPUSCULAR VOLUME 83.6 fL (73.0-96.2); NEUTROPHILS # (AUTO) 8.6 K/uL (1.8-8.9); NEUTROPHILS % (AUTO) 68.3 % (38.5-71.5); PLATELET COUNT (AUTO) 197 K/uL (152-348); RED BLOOD CELL COUNT(AUTO) 4.63 MIL/uL (4.06-5.63); WHITE BLOOD COUNT (AUTO) 12.6 K/uL (3.6-10.2)
[2019-06-21] MEDS: IPRATROPIUM BROMIDE 0.5 MG/2.5 ML NEBU NEB SCH ×3 (07:11→20:38)
[2019-06-21] MEDS: ACETYLCYSTEINE 20% 800 MG/4 ML VIAL NEB SCH ×2 (07:11→20:39)
[2019-06-21] MEDS: ALBUTEROL SULFATE 2.5 MG/ 0.5 ML NEBU NEB SCH ×3 (07:12→20:39)
[2019-06-21 07:22] LABS: BILIRUBIN,TOTAL 0.4 mg/dL (0.2-1.0); CREATININE 0.9 mg/dL (0.6-1.3); MAGNESIUM 1.8 mg/dL (1.8-2.4); PHOSPHOROUS 4.2 mg/dL (2.5-4.9); POTASSIUM 4.6 mmol/L (3.5-5.1); TOTAL PROTEIN, SERUM 7.2 g/dL (6.4-8.2)
[2019-06-21] MEDS: GUAIFENESIN LA 600 MG TABLET.SA PO SCH ×2 (09:00→21:00)
[2019-06-21] MEDS: DULOXETINE 60 MG CAPSULE.DR PO SCH (09:17)
[2019-06-21] MEDS: MULTIVITAMINS,THERAPEUTIC TABLET PO SCH (09:17)
[2019-06-21] MEDS: ASPIRIN EC 81 MG TABLET.DR PO SCH (09:17)
[2019-06-21] MEDS: METHADONE HCL 10 MG TABLET PO SCH ×2 (09:18→21:04)
[2019-06-21] MEDS: DOCUSATE SODIUM 100 MG CAPSULE PO SCH ×2 (09:18→21:02)
[2019-06-21] MEDS: FLUTICASONE/VILANTEROL 1 EACH BLST.W.DEV INH SCH (09:19)
[2019-06-21] MEDS: MIRALAX 17 GM POWD.PACK PO SCH (09:20)
[2019-06-21 09:25] VITALS: BP 116/58
[2019-06-21] MEDS: OXYCODONE HCL 5 MG TABLET PO PRN ×2 (11:49→18:56)
[2019-06-21 18:48] VITALS: BP 140/94
[2019-06-21 19:03] VITALS: BP 127/85
[2019-06-21] MEDS: ATORVASTATIN 20 MG TABLET PO SCH (21:02)
[2019-06-21] MEDS: OLANZAPINE 5 MG TABLET PO SCH (21:04)
[2019-06-21] MEDS: TRAZODONE 100 MG TABLET PO SCH (21:05)
[2019-06-21] MEDS: EZETIMIBE 10 MG TABLET PO SCH (21:05)
[2019-06-22 04:59] VITALS: BP 117/57
[2019-06-22] MEDS: PANTOPRAZOLE SODIUM 40 MG TABLET.DR PO SCH (06:19)
[2019-06-22] MEDS: ACETYLCYSTEINE 20% 800 MG/4 ML VIAL NEB SCH ×2 (07:30→21:35)
[2019-06-22] MEDS: IPRATROPIUM BROMIDE 0.5 MG/2.5 ML NEBU NEB SCH ×3 (07:35→21:35)
[2019-06-22] MEDS: ALBUTEROL SULFATE 2.5 MG/ 0.5 ML NEBU NEB SCH ×3 (07:35→21:35)
[2019-06-22 08:36] VITALS: BP 147/86
[2019-06-22] MEDS: GUAIFENESIN LA 600 MG TABLET.SA PO SCH ×2 (09:00→20:48)
[2019-06-22] MEDS: METHADONE HCL 10 MG TABLET PO SCH ×2 (09:13→20:44)
[2019-06-22] MEDS: CYCLOBENZAPRINE HCL 10 MG TABLET PO PRN (09:13)
[2019-06-22] MEDS: MULTIVITAMINS,THERAPEUTIC TABLET PO SCH (09:14)
[2019-06-22] MEDS: MIRALAX 17 GM POWD.PACK PO SCH (09:14)
[2019-06-22] MEDS: DOCUSATE SODIUM 100 MG CAPSULE PO SCH ×2 (09:14→20:42)
[2019-06-22] MEDS: DULOXETINE 60 MG CAPSULE.DR PO SCH (09:14)
[2019-06-22] MEDS: ASPIRIN EC 81 MG TABLET.DR PO SCH (09:14)
[2019-06-22] MEDS: FLUTICASONE/VILANTEROL 1 EACH BLST.W.DEV INH SCH (09:16)
[2019-06-22] MEDS: OXYCODONE HCL 5 MG TABLET PO PRN ×2 (12:03→18:14)
[2019-06-22 17:02] VITALS: BP 136/73
[2019-06-22 19:53] VITALS: BP 125/66
[2019-06-22] MEDS: ATORVASTATIN 20 MG TABLET PO SCH (20:42)
[2019-06-22] MEDS: TRAZODONE 100 MG TABLET PO SCH (20:44)
[2019-06-22] MEDS: EZETIMIBE 10 MG TABLET PO SCH (20:44)
[2019-06-22] MEDS: OLANZAPINE 5 MG TABLET PO SCH (20:44)
[2019-06-23 05:20] VITALS: BP 130/69
[2019-06-23] MEDS: PANTOPRAZOLE SODIUM 40 MG TABLET.DR PO SCH (06:24)
[2019-06-23] MEDS: ACETYLCYSTEINE 20% 800 MG/4 ML VIAL NEB SCH ×2 (07:30→19:39)
[2019-06-23] MEDS: ALBUTEROL SULFATE 2.5 MG/ 0.5 ML NEBU NEB SCH ×3 (07:30→19:39)
[2019-06-23] MEDS: IPRATROPIUM BROMIDE 0.5 MG/2.5 ML NEBU NEB SCH ×3 (07:30→19:39)
[2019-06-23] MEDS: GUAIFENESIN LA 600 MG TABLET.SA PO SCH ×2 (09:00→20:51)
[2019-06-23] MEDS: METHADONE HCL 10 MG TABLET PO SCH ×2 (09:01→20:51)
[2019-06-23] MEDS: MULTIVITAMINS,THERAPEUTIC TABLET PO SCH (09:01)
[2019-06-23] MEDS: DOCUSATE SODIUM 100 MG CAPSULE PO SCH ×2 (09:01→20:51)
[2019-06-23] MEDS: DULOXETINE 60 MG CAPSULE.DR PO SCH (09:01)
[2019-06-23] MEDS: CYCLOBENZAPRINE HCL 10 MG TABLET PO PRN ×2 (09:01→23:38)
[2019-06-23] MEDS: ASPIRIN EC 81 MG TABLET.DR PO SCH (09:01)
[2019-06-23] MEDS: FLUTICASONE/VILANTEROL 1 EACH BLST.W.DEV INH SCH (09:02)
[2019-06-23] MEDS: MIRALAX 17 GM POWD.PACK PO SCH (09:07)
[2019-06-23] MEDS: OXYCODONE HCL 5 MG TABLET PO PRN ×2 (11:57→17:31)
[2019-06-23 19:47] VITALS: BP 142/76
[2019-06-23] MEDS: ATORVASTATIN 20 MG TABLET PO SCH (20:51)
[2019-06-23] MEDS: EZETIMIBE 10 MG TABLET PO SCH (20:51)
[2019-06-23] MEDS: TRAZODONE 100 MG TABLET PO SCH (20:51)
[2019-06-23] MEDS: OLANZAPINE 5 MG TABLET PO SCH (20:51)
[2019-06-23] MEDS ORDERED: ZOLPIDEM 5 MG TABLET PO ONE (23:30)
[2019-06-24] MEDS: PANTOPRAZOLE SODIUM 40 MG TABLET.DR PO SCH (06:15)
[2019-06-24 06:23] VITALS: BP 111/52
[2019-06-24] MEDS: ACETYLCYSTEINE 20% 800 MG/4 ML VIAL NEB SCH ×3 (07:30→20:31)
[2019-06-24] MEDS: ALBUTEROL SULFATE 2.5 MG/ 0.5 ML NEBU NEB SCH ×4 (07:35→20:31)
[2019-06-24] MEDS: IPRATROPIUM BROMIDE 0.5 MG/2.5 ML NEBU NEB SCH ×4 (07:35→20:31)
[2019-06-24 08:34] VITALS: BP 146/80
[2019-06-24] MEDS: GUAIFENESIN LA 600 MG TABLET.SA PO SCH ×2 (09:00→20:17)
[2019-06-24] MEDS: METHADONE HCL 10 MG TABLET PO SCH ×2 (09:12→20:16)
[2019-06-24] MEDS: MULTIVITAMINS,THERAPEUTIC TABLET PO SCH (09:12)
[2019-06-24] MEDS: DOCUSATE SODIUM 100 MG CAPSULE PO SCH ×2 (09:12→20:16)
[2019-06-24] MEDS: CYCLOBENZAPRINE HCL 10 MG TABLET PO PRN ×2 (09:12→23:00)
[2019-06-24] MEDS: DULOXETINE 60 MG CAPSULE.DR PO SCH (09:12)
[2019-06-24] MEDS: ASPIRIN EC 81 MG TABLET.DR PO SCH (09:12)
[2019-06-24] MEDS: FLUTICASONE/VILANTEROL 1 EACH BLST.W.DEV INH SCH (09:13)
[2019-06-24] MEDS: MIRALAX 17 GM POWD.PACK PO SCH (09:13)
[2019-06-24] MEDS: OXYCODONE HCL 5 MG TABLET PO PRN ×2 (12:22→18:15)
[2019-06-24 16:36] VITALS: BP 141/85
[2019-06-24] MEDS: ATORVASTATIN 20 MG TABLET PO SCH (20:16)
[2019-06-24] MEDS: EZETIMIBE 10 MG TABLET PO SCH (20:16)
[2019-06-24] MEDS: OLANZAPINE 5 MG TABLET PO SCH (20:16)
[2019-06-24] MEDS: TRAZODONE 100 MG TABLET PO SCH (20:17)
[2019-06-24] MEDS: ZOLPIDEM 5 MG TABLET PO PRN (23:13)
[2019-06-25] MEDS: PANTOPRAZOLE SODIUM 40 MG TABLET.DR PO SCH (06:17)
[2019-06-25 07:30] VITALS: BP 120/69
[2019-06-25] MEDS: ACETYLCYSTEINE 20% 800 MG/4 ML VIAL NEB SCH ×2 (08:21→19:18)
[2019-06-25] MEDS: ALBUTEROL SULFATE 2.5 MG/ 0.5 ML NEBU NEB SCH ×4 (08:21→19:18)
[2019-06-25] MEDS: IPRATROPIUM BROMIDE 0.5 MG/2.5 ML NEBU NEB SCH ×4 (08:21→19:18)
[2019-06-25] MEDS: GUAIFENESIN LA 600 MG TABLET.SA PO SCH ×2 (09:00→20:22)
[2019-06-25] MEDS: MULTIVITAMINS,THERAPEUTIC TABLET PO SCH (09:06)
[2019-06-25] MEDS: ASPIRIN EC 81 MG TABLET.DR PO SCH (09:06)
[2019-06-25] MEDS: DOCUSATE SODIUM 100 MG CAPSULE PO SCH ×2 (09:06→20:17)
[2019-06-25] MEDS: METHADONE HCL 10 MG TABLET PO SCH ×2 (09:07→20:18)
[2019-06-25] MEDS: DULOXETINE 60 MG CAPSULE.DR PO SCH (09:07)
[2019-06-25] MEDS: MIRALAX 17 GM POWD.PACK PO SCH (09:07)
[2019-06-25] MEDS: FLUTICASONE/VILANTEROL 1 EACH BLST.W.DEV INH SCH (09:07)
[2019-06-25] MEDS ORDERED: LACTULOSE 20 G/30 ML LIQUID UDC PO PRN (10:45)
[2019-06-25] MEDS: OXYCODONE HCL 5 MG TABLET PO PRN ×2 (12:18→17:01)
[2019-06-25] MEDS ORDERED: MAGNESIUM CITRATE 296 ML BOTTLE PO ONE (13:45)
[2019-06-25] MEDS ORDERED: FLEET ENEMA 133 ML BOTTLE RC ONE (13:45)
[2019-06-25] MEDS ORDERED: GOLYTELY 4000 ML BOTTLE PO ONE (13:45)
[2019-06-25 16:00] VITALS: BP 135/79
[2019-06-25] MEDS ORDERED: BISACODYL 10 MG SUPP.RECT RC ONE (17:00)
[2019-06-25 19:44] VITALS: BP 135/81
[2019-06-25] MEDS: TRAZODONE 100 MG TABLET PO SCH (20:18)
[2019-06-25] MEDS: OLANZAPINE 5 MG TABLET PO SCH (20:18)
[2019-06-25] MEDS: ATORVASTATIN 20 MG TABLET PO SCH (20:18)
[2019-06-25] MEDS: EZETIMIBE 10 MG TABLET PO SCH (20:19)
[2019-06-25] MEDS: ZOLPIDEM 5 MG TABLET PO PRN (20:43)
[2019-06-26] MEDS: PANTOPRAZOLE SODIUM 40 MG TABLET.DR PO SCH (06:19)
[2019-06-26 07:26] LABS: BASOPHILS # (AUTO) 0.1 K/uL (0.0-8.0); BASOPHILS % (AUTO) 0.6 % (0.0-2.0); EOSINOPHILS # (AUTO) 0.6 K/uL (0.0-0.7); EOSINOPHILS % (AUTO) 4.3 % (0.0-7.0); HEMATOCRIT 36.9 % (36.7-47.1); HEMOGLOBIN 12.9 g/dL (12.5-16.3); LYMPHOCYTES # (AUTO) 2.8 K/uL (20.0-40.0); LYMPHOCYTES % (AUTO) 20.7 % (20.5-51.5); MEAN CORPUSCULAR HEMOGLOBIN 29.9 uug (23.8-33.4); MEAN CORPUSCULAR HGB CONC 35 g/dL (32.5-36.3); MEAN CORPUSCULAR VOLUME 85.6 fL (73.0-96.2); MONOCYTES # (AUTO) 1.1 K/uL (2.0-10.0); MONOCYTES % (AUTO) 7.9 % (0.0-11.0); NEUTROPHILS # (AUTO) 9.1 K/uL (1.8-8.9); NEUTROPHILS % (AUTO) 66.5 % (38.5-71.5); PLATELET COUNT (AUTO) 193 K/uL (152-348); RED BLOOD CELL COUNT(AUTO) 4.31 MIL/uL (4.06-5.63); WHITE BLOOD COUNT (AUTO) 13.7 K/uL (3.6-10.2)
[2019-06-26] MEDS: ACETYLCYSTEINE 20% 800 MG/4 ML VIAL NEB SCH ×2 (07:30→20:19)
[2019-06-26] MEDS: ALBUTEROL SULFATE 2.5 MG/ 0.5 ML NEBU NEB SCH ×4 (07:35→20:19)
[2019-06-26] MEDS: IPRATROPIUM BROMIDE 0.5 MG/2.5 ML NEBU NEB SCH ×4 (07:35→20:19)
[2019-06-26 07:37] LABS: BILIRUBIN,TOTAL 0.3 mg/dL (0.2-1.0); CREATININE 0.8 mg/dL (0.6-1.3); POTASSIUM 3.9 mmol/L (3.5-5.1); TOTAL PROTEIN, SERUM 6.8 g/dL (6.4-8.2)
[2019-06-26] MEDS: ASPIRIN EC 81 MG TABLET.DR PO SCH (08:51)
[2019-06-26] MEDS: DULOXETINE 60 MG CAPSULE.DR PO SCH (08:51)
[2019-06-26] MEDS: METHADONE HCL 10 MG TABLET PO SCH ×2 (08:51→20:37)
[2019-06-26] MEDS: MULTIVITAMINS,THERAPEUTIC TABLET PO SCH (08:51)
[2019-06-26] MEDS: FLUTICASONE/VILANTEROL 1 EACH BLST.W.DEV INH SCH (08:51)
[2019-06-26] MEDS: DOCUSATE SODIUM 100 MG CAPSULE PO SCH ×2 (08:51→20:35)
[2019-06-26] MEDS: MIRALAX 17 GM POWD.PACK PO SCH (08:51)
[2019-06-26] MEDS: GUAIFENESIN LA 600 MG TABLET.SA PO SCH ×2 (08:58→20:43)
[2019-06-26 09:02] VITALS: BP 119/61
[2019-06-26] MEDS: BISACODYL 10 MG SUPP.RECT RC PRN (12:25)
[2019-06-26] MEDS: OXYCODONE HCL 5 MG TABLET PO PRN ×2 (13:15→17:58)
[2019-06-26 15:35] LABS: *BILIRUBIN,URIN NEGATIVE (NEGATIVE); *BLOOD, URINE NEGATIVE (NEGATIVE); *CLARITY,URINE SLIGHTLY CLOUDY (CLEAR); *KETONES,URINE NEGATIVE (NEGATIVE); LEUKOCYTE ESTERASE ,URINE NEGATIVE (NEGATIVE); NITRITE, URINE NEGATIVE (NEGATIVE); UGLUCOSE NEGATIVE (NEGATIVE)
[2019-06-26 16:00] VITALS: BP 121/60
[2019-06-26 16:20] LABS: *COLOR,URINE DARK YELLOW (YELLOW)
[2019-06-26 16:32] LABS: CALCIUM OXALATE CRYSTALS,UR FEW /HPF (NONE SEEN); URINE AMORPHOUS PHOSPHATES MANY /HPF; WBC,URINE 0-3 /HPF (0-3)
[2019-06-26 16:33] LABS: MUCUS,URINE MANY /LPF (0-FEW)
[2019-06-26] MEDS: EZETIMIBE 10 MG TABLET PO SCH (20:35)
[2019-06-26] MEDS: OLANZAPINE 5 MG TABLET PO SCH (20:35)
[2019-06-26] MEDS: ATORVASTATIN 20 MG TABLET PO SCH (20:35)
[2019-06-26] MEDS: TRAZODONE 100 MG TABLET PO SCH (20:36)
[2019-06-26 21:09] VITALS: BP 130/80
[2019-06-26] MEDS: ZOLPIDEM 5 MG TABLET PO PRN (22:05)
[2019-06-27 05:18] VITALS: BP 126/72
[2019-06-27] MEDS: PANTOPRAZOLE SODIUM 40 MG TABLET.DR PO SCH (06:57)
[2019-06-27] MEDS: ACETYLCYSTEINE 20% 800 MG/4 ML VIAL NEB SCH ×2 (07:30→20:44)
[2019-06-27] MEDS: ALBUTEROL SULFATE 2.5 MG/ 0.5 ML NEBU NEB SCH ×3 (07:35→20:45)
[2019-06-27] MEDS: IPRATROPIUM BROMIDE 0.5 MG/2.5 ML NEBU NEB SCH ×3 (07:35→20:44)
[2019-06-27] MEDS: FLUTICASONE/VILANTEROL 1 EACH BLST.W.DEV INH SCH (08:40)
[2019-06-27] MEDS: MULTIVITAMINS,THERAPEUTIC TABLET PO SCH (08:40)
[2019-06-27] MEDS: METHADONE HCL 10 MG TABLET PO SCH ×2 (08:40→20:35)
[2019-06-27] MEDS: DOCUSATE SODIUM 100 MG CAPSULE PO SCH ×2 (08:40→20:35)
[2019-06-27] MEDS: DULOXETINE 60 MG CAPSULE.DR PO SCH (08:41)
[2019-06-27] MEDS: GUAIFENESIN LA 600 MG TABLET.SA PO SCH ×2 (08:43→20:39)
[2019-06-27] MEDS: MIRALAX 17 GM POWD.PACK PO SCH (08:43)
[2019-06-27 09:30] VITALS: BP 123/78
[2019-06-27] MEDS: ASPIRIN EC 81 MG TABLET.DR PO SCH (10:23)
[2019-06-27] MEDS: OXYCODONE HCL 5 MG TABLET PO PRN ×2 (11:52→18:41)
[2019-06-27] MEDS ORDERED: GOLYTELY 4000 ML BOTTLE PO ONE (15:45)
[2019-06-27] MEDS: SIMETHICONE 80 MG TAB.CHEW PO SCH ×2 (18:21→20:49)
[2019-06-27] MEDS: ATORVASTATIN 20 MG TABLET PO SCH (20:35)
[2019-06-27] MEDS: TRAZODONE 100 MG TABLET PO SCH (20:36)
[2019-06-27] MEDS: EZETIMIBE 10 MG TABLET PO SCH (20:36)
[2019-06-27] MEDS: OLANZAPINE 5 MG TABLET PO SCH (20:36)
[2019-06-27] MEDS: ZOLPIDEM 5 MG TABLET PO PRN (20:50)
[2019-06-27 22:11] VITALS: BP 161/61
[2019-06-28 04:26] VITALS: BP 117/83
[2019-06-28] MEDS: PANTOPRAZOLE SODIUM 40 MG TABLET.DR PO SCH (06:14)
[2019-06-28] MEDS: ACETYLCYSTEINE 20% 800 MG/4 ML VIAL NEB SCH ×2 (07:30→20:08)
[2019-06-28] MEDS: SIMETHICONE 80 MG TAB.CHEW PO SCH ×4 (07:30→20:10)
[2019-06-28] MEDS: ALBUTEROL SULFATE 2.5 MG/ 0.5 ML NEBU NEB SCH ×3 (07:32→20:08)
[2019-06-28] MEDS: IPRATROPIUM BROMIDE 0.5 MG/2.5 ML NEBU NEB SCH ×3 (07:32→20:08)
[2019-06-28] MEDS ORDERED: GOLYTELY 4000 ML BOTTLE PO SCH (08:00)
[2019-06-28] MEDS: METHADONE HCL 10 MG TABLET PO SCH ×2 (08:38→20:10)
[2019-06-28] MEDS: MULTIVITAMINS,THERAPEUTIC TABLET PO SCH (08:38)
[2019-06-28] MEDS: DOCUSATE SODIUM 100 MG CAPSULE PO SCH ×2 (08:38→20:10)
[2019-06-28] MEDS: DULOXETINE 60 MG CAPSULE.DR PO SCH (08:38)
[2019-06-28] MEDS: ASPIRIN EC 81 MG TABLET.DR PO SCH (08:38)
[2019-06-28] MEDS: FLUTICASONE/VILANTEROL 1 EACH BLST.W.DEV INH SCH (08:39)
[2019-06-28] MEDS: GUAIFENESIN LA 600 MG TABLET.SA PO SCH ×2 (08:41→20:11)
[2019-06-28] MEDS: MIRALAX 17 GM POWD.PACK PO SCH (08:41)
[2019-06-28] MEDS: MAG HYDROX/AL HYDROX/SIMETH 30 ML LIQUID UDC PO PRN (13:19)
[2019-06-28] MEDS: OXYCODONE HCL 5 MG TABLET PO PRN (13:30)
[2019-06-28] MEDS: ATORVASTATIN 20 MG TABLET PO SCH (20:10)
[2019-06-28] MEDS: EZETIMIBE 10 MG TABLET PO SCH (20:10)
[2019-06-28] MEDS: OLANZAPINE 5 MG TABLET PO SCH (20:10)
[2019-06-28] MEDS: TRAZODONE 100 MG TABLET PO SCH (20:11)
[2019-06-28 20:34] VITALS: BP 135/75
[2019-06-29] MEDS: PANTOPRAZOLE SODIUM 40 MG TABLET.DR PO SCH (06:35)
[2019-06-29] MEDS: SIMETHICONE 80 MG TAB.CHEW PO SCH ×4 (06:35→21:00)
[2019-06-29] MEDS: ACETYLCYSTEINE 20% 800 MG/4 ML VIAL NEB SCH ×3 (07:30→20:16)
[2019-06-29] MEDS: IPRATROPIUM BROMIDE 0.5 MG/2.5 ML NEBU NEB SCH ×3 (07:35→19:30)
[2019-06-29] MEDS: ALBUTEROL SULFATE 2.5 MG/ 0.5 ML NEBU NEB SCH ×3 (07:35→19:30)
[2019-06-29 08:11] LABS: BASOPHILS # (AUTO) 0.1 K/uL (0.0-8.0); EOSINOPHILS # (AUTO) 0.5 K/uL (0.0-0.7); EOSINOPHILS % (AUTO) 3.6 % (0.0-7.0); HEMOGLOBIN 13.6 g/dL (12.5-16.3); LYMPHOCYTES # (AUTO) 2.9 K/uL (20.0-40.0); LYMPHOCYTES % (AUTO) 21.7 % (20.5-51.5); MEAN CORPUSCULAR HEMOGLOBIN 28.9 uug (23.8-33.4); MEAN CORPUSCULAR HGB CONC 34 g/dL (32.5-36.3); MEAN CORPUSCULAR VOLUME 84.9 fL (73.0-96.2); MONOCYTES # (AUTO) 1.1 K/uL (2.0-10.0); MONOCYTES % (AUTO) 8.2 % (0.0-11.0); NEUTROPHILS # (AUTO) 8.9 K/uL (1.8-8.9); NEUTROPHILS % (AUTO) 65.5 % (38.5-71.5); PLATELET COUNT (AUTO) 193 K/uL (152-348); RED BLOOD CELL COUNT(AUTO) 4.71 MIL/uL (4.06-5.63); WHITE BLOOD COUNT (AUTO) 13.6 K/uL (3.6-10.2)
[2019-06-29 08:20] LABS: CREATININE 0.9 mg/dL (0.6-1.3); MAGNESIUM 1.9 mg/dL (1.8-2.4); PHOSPHOROUS 3.8 mg/dL (2.5-4.9); POTASSIUM 4.1 mmol/L (3.5-5.1)
[2019-06-29 08:43] VITALS: BP 137/83
[2019-06-29] MEDS: GUAIFENESIN LA 600 MG TABLET.SA PO SCH ×2 (09:00→21:00)
[2019-06-29] MEDS: DOCUSATE SODIUM 100 MG CAPSULE PO SCH ×2 (09:01→21:03)
[2019-06-29] MEDS: CYCLOBENZAPRINE HCL 10 MG TABLET PO PRN (09:01)
[2019-06-29] MEDS: ASPIRIN EC 81 MG TABLET.DR PO SCH (09:01)
[2019-06-29] MEDS: DULOXETINE 60 MG CAPSULE.DR PO SCH (09:01)
[2019-06-29] MEDS: MULTIVITAMINS,THERAPEUTIC TABLET PO SCH (09:01)
[2019-06-29] MEDS: MIRALAX 17 GM POWD.PACK PO SCH (09:02)
[2019-06-29] MEDS: METHADONE HCL 10 MG TABLET PO SCH ×2 (09:02→21:05)
[2019-06-29] MEDS: FLUTICASONE/VILANTEROL 1 EACH BLST.W.DEV INH SCH (09:02)
[2019-06-29] MEDS: OXYCODONE HCL 5 MG TABLET PO PRN (18:12)
[2019-06-29 20:05] VITALS: BP 131/71
[2019-06-29] MEDS: OLANZAPINE 5 MG TABLET PO SCH (21:00)
[2019-06-29] MEDS: ATORVASTATIN 20 MG TABLET PO SCH (21:03)
[2019-06-29] MEDS: EZETIMIBE 10 MG TABLET PO SCH (21:03)
[2019-06-29] MEDS: TRAZODONE 100 MG TABLET PO SCH (22:07)
[2019-06-29] MEDS: ZOLPIDEM 5 MG TABLET PO PRN (22:07)
[2019-06-30] MEDS: CYCLOBENZAPRINE HCL 10 MG TABLET PO PRN ×2 (01:39→09:01)
[2019-06-30] MEDS: MAG HYDROX/AL HYDROX/SIMETH 30 ML LIQUID UDC PO PRN (04:27)
[2019-06-30 07:00] VITALS: BP 113/69
[2019-06-30] MEDS: PANTOPRAZOLE SODIUM 40 MG TABLET.DR PO SCH (07:01)
[2019-06-30] MEDS: SIMETHICONE 80 MG TAB.CHEW PO SCH ×4 (07:30→20:06)
[2019-06-30] MEDS: ALBUTEROL SULFATE 2.5 MG/ 0.5 ML NEBU NEB SCH ×3 (07:35→20:16)
[2019-06-30] MEDS: IPRATROPIUM BROMIDE 0.5 MG/2.5 ML NEBU NEB SCH ×3 (07:35→20:16)
[2019-06-30] MEDS: METHADONE HCL 10 MG TABLET PO SCH ×2 (09:00→20:03)
[2019-06-30] MEDS: GUAIFENESIN LA 600 MG TABLET.SA PO SCH ×2 (09:00→20:03)
[2019-06-30] MEDS: ASPIRIN EC 81 MG TABLET.DR PO SCH (09:00)
[2019-06-30] MEDS: DOCUSATE SODIUM 100 MG CAPSULE PO SCH ×2 (09:01→20:02)
[2019-06-30] MEDS: FLUTICASONE/VILANTEROL 1 EACH BLST.W.DEV INH SCH (09:01)
[2019-06-30] MEDS: MULTIVITAMINS,THERAPEUTIC TABLET PO SCH (09:01)
[2019-06-30] MEDS: DULOXETINE 60 MG CAPSULE.DR PO SCH (09:01)
[2019-06-30] MEDS: MIRALAX 17 GM POWD.PACK PO SCH (09:01)
[2019-06-30 09:49] VITALS: BP 113/72
[2019-06-30] MEDS: OXYCODONE HCL 5 MG TABLET PO PRN ×2 (12:07→17:21)
[2019-06-30 19:52] VITALS: BP 126/78
[2019-06-30] MEDS: EZETIMIBE 10 MG TABLET PO SCH (20:02)
[2019-06-30] MEDS: TRAZODONE 100 MG TABLET PO SCH (20:02)
[2019-06-30] MEDS: OLANZAPINE 5 MG TABLET PO SCH (20:02)
[2019-06-30] MEDS: ATORVASTATIN 20 MG TABLET PO SCH (20:02)
[2019-06-30] MEDS: ZOLPIDEM 5 MG TABLET PO PRN (20:03)
[2019-07-01] MEDS: SIMETHICONE 80 MG TAB.CHEW PO SCH ×4 (06:33→20:37)
[2019-07-01] MEDS: PANTOPRAZOLE SODIUM 40 MG TABLET.DR PO SCH (06:36)
[2019-07-01] MEDS: IPRATROPIUM BROMIDE 0.5 MG/2.5 ML NEBU NEB SCH ×4 (07:54→20:09)
[2019-07-01] MEDS: ALBUTEROL SULFATE 2.5 MG/ 0.5 ML NEBU NEB SCH ×4 (07:54→20:09)
[2019-07-01] MEDS: GUAIFENESIN LA 600 MG TABLET.SA PO SCH ×2 (09:00→20:40)
[2019-07-01] MEDS: FLUTICASONE/VILANTEROL 1 EACH BLST.W.DEV INH SCH (09:02)
[2019-07-01] MEDS: MIRALAX 17 GM POWD.PACK PO SCH (09:02)
[2019-07-01] MEDS: DULOXETINE 60 MG CAPSULE.DR PO SCH (09:03)
[2019-07-01] MEDS: ASPIRIN EC 81 MG TABLET.DR PO SCH (09:03)
[2019-07-01] MEDS: MULTIVITAMINS,THERAPEUTIC TABLET PO SCH (09:03)
[2019-07-01] MEDS: DOCUSATE SODIUM 100 MG CAPSULE PO SCH ×2 (09:03→20:34)
[2019-07-01] MEDS: METHADONE HCL 10 MG TABLET PO SCH ×2 (09:03→20:36)
[2019-07-01] MEDS: CYCLOBENZAPRINE HCL 10 MG TABLET PO PRN (09:03)
[2019-07-01 09:30] VITALS: BP 117/57
[2019-07-01] MEDS: OXYCODONE HCL 5 MG TABLET PO PRN (12:40)
[2019-07-01] MEDS: ATORVASTATIN 20 MG TABLET PO SCH (20:34)
[2019-07-01] MEDS: OLANZAPINE 5 MG TABLET PO SCH (20:36)
[2019-07-01] MEDS: EZETIMIBE 10 MG TABLET PO SCH (20:37)
[2019-07-01] MEDS: TRAZODONE 100 MG TABLET PO SCH (20:37)
[2019-07-01] MEDS: ZOLPIDEM 5 MG TABLET PO PRN (21:09)
[2019-07-01 21:20] VITALS: BP 119/81
[2019-07-02 04:36] VITALS: BP 137/84
[2019-07-02] MEDS: PANTOPRAZOLE SODIUM 40 MG TABLET.DR PO SCH (06:27)
[2019-07-02] MEDS: SIMETHICONE 80 MG TAB.CHEW PO SCH ×3 (06:41→12:07)
[2019-07-02] MEDS: ALBUTEROL SULFATE 2.5 MG/ 0.5 ML NEBU NEB SCH ×3 (07:35→22:06)
[2019-07-02] MEDS: IPRATROPIUM BROMIDE 0.5 MG/2.5 ML NEBU NEB SCH ×3 (07:35→22:06)
[2019-07-02 08:07] VITALS: BP 108/65
[2019-07-02] MEDS: DULOXETINE 60 MG CAPSULE.DR PO SCH (08:24)
[2019-07-02] MEDS: DOCUSATE SODIUM 100 MG CAPSULE PO SCH ×2 (08:24→22:33)
[2019-07-02] MEDS: MULTIVITAMINS,THERAPEUTIC TABLET PO SCH (08:24)
[2019-07-02] MEDS: GUAIFENESIN LA 600 MG TABLET.SA PO SCH (08:26)
[2019-07-02] MEDS: ASPIRIN EC 81 MG TABLET.DR PO SCH (08:26)
[2019-07-02] MEDS: METHADONE HCL 10 MG TABLET PO SCH ×2 (08:26→22:49)
[2019-07-02] MEDS: MIRALAX 17 GM POWD.PACK PO SCH (08:28)
[2019-07-02] MEDS: FLUTICASONE/VILANTEROL 1 EACH BLST.W.DEV INH SCH (08:29)
[2019-07-02] MEDS: OXYCODONE HCL 5 MG TABLET PO PRN ×2 (12:07→18:25)
[2019-07-02] MEDS ORDERED: SIMETHICONE 80 MG TAB.CHEW PO PRN (14:45)
[2019-07-02] MEDS ORDERED: GUAIFENESIN LA 600 MG TABLET.SA PO PRN (14:45)
[2019-07-02 15:15] VITALS: BP 119/68
[2019-07-02 20:19] VITALS: BP 128/62
[2019-07-02] MEDS: TRAZODONE 100 MG TABLET PO SCH (22:33)
[2019-07-02] MEDS: ATORVASTATIN 20 MG TABLET PO SCH (22:33)
[2019-07-02] MEDS: OLANZAPINE 5 MG TABLET PO SCH (22:33)
[2019-07-02] MEDS: EZETIMIBE 10 MG TABLET PO SCH (22:33)
[2019-07-02] MEDS ORDERED: METHADONE HCL 10 MG TABLET ONE (22:45)
[2019-07-03] MEDS: ZOLPIDEM 5 MG TABLET PO PRN ×2 (00:25→21:56)
[2019-07-03 04:55] VITALS: BP 115/55
[2019-07-03] MEDS: PANTOPRAZOLE SODIUM 40 MG TABLET.DR PO SCH (06:24)
[2019-07-03] MEDS: IPRATROPIUM BROMIDE 0.5 MG/2.5 ML NEBU NEB SCH ×3 (08:28→19:30)
[2019-07-03] MEDS: ALBUTEROL SULFATE 2.5 MG/ 0.5 ML NEBU NEB SCH ×3 (08:29→19:30)
[2019-07-03] MEDS: DOCUSATE SODIUM 100 MG CAPSULE PO SCH ×2 (08:56→21:08)
[2019-07-03] MEDS: MIRALAX 17 GM POWD.PACK PO SCH (08:57)
[2019-07-03] MEDS: MULTIVITAMINS,THERAPEUTIC TABLET PO SCH (08:57)
[2019-07-03] MEDS: ASPIRIN EC 81 MG TABLET.DR PO SCH (08:57)
[2019-07-03] MEDS: METHADONE HCL 10 MG TABLET PO SCH ×2 (08:57→21:56)
[2019-07-03] MEDS: DULOXETINE 60 MG CAPSULE.DR PO SCH (08:57)
[2019-07-03] MEDS: FLUTICASONE/VILANTEROL 1 EACH BLST.W.DEV INH SCH (08:58)
[2019-07-03 09:39] VITALS: BP 144/77
[2019-07-03] MEDS: OXYCODONE HCL 5 MG TABLET PO PRN ×2 (12:23→17:58)
[2019-07-03 16:40] VITALS: BP 138/74
[2019-07-03] MEDS: OLANZAPINE 5 MG TABLET PO SCH (21:08)
[2019-07-03 21:09] VITALS: BP 137/79
[2019-07-03] MEDS: EZETIMIBE 10 MG TABLET PO SCH (21:09)
[2019-07-03] MEDS: TRAZODONE 100 MG TABLET PO SCH (21:09)
[2019-07-03] MEDS: ATORVASTATIN 20 MG TABLET PO SCH (21:10)
[2019-07-04 05:11] VITALS: BP 117/72
[2019-07-04] MEDS: PANTOPRAZOLE SODIUM 40 MG TABLET.DR PO SCH (06:51)
[2019-07-04] MEDS: ALBUTEROL SULFATE 2.5 MG/ 0.5 ML NEBU NEB SCH ×3 (08:38→20:31)
[2019-07-04] MEDS: IPRATROPIUM BROMIDE 0.5 MG/2.5 ML NEBU NEB SCH ×3 (08:38→20:31)
[2019-07-04] MEDS: ASPIRIN EC 81 MG TABLET.DR PO SCH (09:05)
[2019-07-04] MEDS: DOCUSATE SODIUM 100 MG CAPSULE PO SCH ×2 (09:05→21:08)
[2019-07-04] MEDS: MULTIVITAMINS,THERAPEUTIC TABLET PO SCH (09:06)
[2019-07-04] MEDS: MIRALAX 17 GM POWD.PACK PO SCH (09:06)
[2019-07-04] MEDS: METHADONE HCL 10 MG TABLET PO SCH ×2 (09:06→21:08)
[2019-07-04] MEDS: FLUTICASONE/VILANTEROL 1 EACH BLST.W.DEV INH SCH (09:07)
[2019-07-04] MEDS: DULOXETINE 60 MG CAPSULE.DR PO SCH (09:07)
[2019-07-04] MEDS: OXYCODONE HCL 5 MG TABLET PO PRN ×2 (12:27→18:19)
[2019-07-04 17:58] VITALS: BP 126/71
[2019-07-04] MEDS: OLANZAPINE 5 MG TABLET PO SCH (21:07)
[2019-07-04] MEDS: EZETIMIBE 10 MG TABLET PO SCH (21:07)
[2019-07-04] MEDS: ATORVASTATIN 20 MG TABLET PO SCH (21:08)
[2019-07-04] MEDS: TRAZODONE 100 MG TABLET PO SCH (21:08)
[2019-07-04 21:47] VITALS: BP 135/76
[2019-07-05 06:05] VITALS: BP 118/70
[2019-07-05] MEDS: PANTOPRAZOLE SODIUM 40 MG TABLET.DR PO SCH (06:39)
[2019-07-05] MEDS: ALBUTEROL SULFATE 2.5 MG/ 0.5 ML NEBU NEB SCH ×3 (07:35→19:30)
[2019-07-05] MEDS: IPRATROPIUM BROMIDE 0.5 MG/2.5 ML NEBU NEB SCH ×3 (07:35→19:30)
[2019-07-05] MEDS: MIRALAX 17 GM POWD.PACK PO SCH (08:46)
[2019-07-05] MEDS: ASPIRIN EC 81 MG TABLET.DR PO SCH (08:46)
[2019-07-05] MEDS: MULTIVITAMINS,THERAPEUTIC TABLET PO SCH (08:46)
[2019-07-05] MEDS: DOCUSATE SODIUM 100 MG CAPSULE PO SCH ×2 (08:46→20:31)
[2019-07-05] MEDS: DULOXETINE 60 MG CAPSULE.DR PO SCH (08:47)
[2019-07-05] MEDS: FLUTICASONE/VILANTEROL 1 EACH BLST.W.DEV INH SCH (08:47)
[2019-07-05] MEDS: METHADONE HCL 10 MG TABLET PO SCH ×2 (08:57→20:31)
[2019-07-05] MEDS: OXYCODONE HCL 5 MG TABLET PO PRN ×2 (14:34→18:34)
[2019-07-05] MEDS: MAG HYDROX/AL HYDROX/SIMETH 30 ML LIQUID UDC PO PRN (16:12)
[2019-07-05 16:21] VITALS: BP 145/88
[2019-07-05 20:22] VITALS: BP 143/82
[2019-07-05] MEDS: OLANZAPINE 5 MG TABLET PO SCH (20:30)
[2019-07-05] MEDS: TRAZODONE 100 MG TABLET PO SCH (20:30)
[2019-07-05] MEDS: ATORVASTATIN 20 MG TABLET PO SCH (20:31)
[2019-07-05] MEDS: EZETIMIBE 10 MG TABLET PO SCH (20:31)
[2019-07-05] MEDS: ZOLPIDEM 5 MG TABLET PO PRN (20:36)
[2019-07-06] MEDS: PANTOPRAZOLE SODIUM 40 MG TABLET.DR PO SCH (06:54)
[2019-07-06] MEDS: ALBUTEROL SULFATE 2.5 MG/ 0.5 ML NEBU NEB SCH ×3 (07:35→19:30)
[2019-07-06] MEDS: IPRATROPIUM BROMIDE 0.5 MG/2.5 ML NEBU NEB SCH ×3 (07:35→19:30)
[2019-07-06 08:00] VITALS: BP 131/80
[2019-07-06] MEDS: MIRALAX 17 GM POWD.PACK PO SCH (09:00)
[2019-07-06] MEDS: ASPIRIN EC 81 MG TABLET.DR PO SCH (09:08)
[2019-07-06] MEDS: MULTIVITAMINS,THERAPEUTIC TABLET PO SCH (09:09)
[2019-07-06] MEDS: DOCUSATE SODIUM 100 MG CAPSULE PO SCH ×2 (09:09→20:04)
[2019-07-06] MEDS: FLUTICASONE/VILANTEROL 1 EACH BLST.W.DEV INH SCH (09:09)
[2019-07-06] MEDS: DULOXETINE 60 MG CAPSULE.DR PO SCH (09:09)
[2019-07-06] MEDS: METHADONE HCL 10 MG TABLET PO SCH ×2 (09:11→20:04)
[2019-07-06] MEDS: OXYCODONE HCL 5 MG TABLET PO PRN (17:56)
[2019-07-06] MEDS: ZOLPIDEM 5 MG TABLET PO PRN (20:04)
[2019-07-06] MEDS: OLANZAPINE 5 MG TABLET PO SCH (20:04)
[2019-07-06] MEDS: TRAZODONE 100 MG TABLET PO SCH (20:04)
[2019-07-06] MEDS: EZETIMIBE 10 MG TABLET PO SCH (20:04)
[2019-07-06] MEDS: ATORVASTATIN 20 MG TABLET PO SCH (20:04)
[2019-07-06 20:20] VITALS: BP 129/70
[2019-07-07 04:00] VITALS: BP 127/66
[2019-07-07] MEDS: PANTOPRAZOLE SODIUM 40 MG TABLET.DR PO SCH (06:21)
[2019-07-07] MEDS: IPRATROPIUM BROMIDE 0.5 MG/2.5 ML NEBU NEB SCH ×4 (07:35→21:35)
[2019-07-07] MEDS: ALBUTEROL SULFATE 2.5 MG/ 0.5 ML NEBU NEB SCH ×4 (07:35→21:35)
[2019-07-07] MEDS: FLUTICASONE/VILANTEROL 1 EACH BLST.W.DEV INH SCH (09:01)
[2019-07-07] MEDS: MIRALAX 17 GM POWD.PACK PO SCH (09:02)
[2019-07-07] MEDS: DULOXETINE 60 MG CAPSULE.DR PO SCH (09:02)
[2019-07-07] MEDS: DOCUSATE SODIUM 100 MG CAPSULE PO SCH ×2 (09:02→20:03)
[2019-07-07] MEDS: CYCLOBENZAPRINE HCL 10 MG TABLET PO PRN (09:02)
[2019-07-07] MEDS: MULTIVITAMINS,THERAPEUTIC TABLET PO SCH (09:03)
[2019-07-07] MEDS: METHADONE HCL 10 MG TABLET PO SCH ×2 (09:03→20:03)
[2019-07-07] MEDS: ASPIRIN EC 81 MG TABLET.DR PO SCH (09:03)
[2019-07-07] MEDS: OXYCODONE HCL 5 MG TABLET PO PRN ×2 (12:14→18:53)
[2019-07-07] MEDS: EZETIMIBE 10 MG TABLET PO SCH (20:03)
[2019-07-07] MEDS: TRAZODONE 100 MG TABLET PO SCH (20:03)
[2019-07-07] MEDS: OLANZAPINE 5 MG TABLET PO SCH (20:03)
[2019-07-07] MEDS: ATORVASTATIN 20 MG TABLET PO SCH (20:03)
[2019-07-07] MEDS: ZOLPIDEM 5 MG TABLET PO PRN (20:08)
[2019-07-07 20:28] VITALS: BP 142/77
[2019-07-08 05:08] VITALS: BP 90/44
[2019-07-08] MEDS: PANTOPRAZOLE SODIUM 40 MG TABLET.DR PO SCH (06:29)
[2019-07-08] MEDS: IPRATROPIUM BROMIDE 0.5 MG/2.5 ML NEBU NEB SCH ×3 (07:35→21:10)
[2019-07-08] MEDS: ALBUTEROL SULFATE 2.5 MG/ 0.5 ML NEBU NEB SCH ×3 (07:35→21:10)
[2019-07-08] MEDS: ASPIRIN EC 81 MG TABLET.DR PO SCH (09:21)
[2019-07-08] MEDS: DULOXETINE 60 MG CAPSULE.DR PO SCH (09:21)
[2019-07-08] MEDS: MULTIVITAMINS,THERAPEUTIC TABLET PO SCH (09:21)
[2019-07-08] MEDS: DOCUSATE SODIUM 100 MG CAPSULE PO SCH ×2 (09:21→20:20)
[2019-07-08] MEDS: CYCLOBENZAPRINE HCL 10 MG TABLET PO PRN (09:21)
[2019-07-08] MEDS: MIRALAX 17 GM POWD.PACK PO SCH (09:22)
[2019-07-08] MEDS: FLUTICASONE/VILANTEROL 1 EACH BLST.W.DEV INH SCH (09:22)
[2019-07-08] MEDS: METHADONE HCL 10 MG TABLET PO SCH ×2 (09:22→20:20)
[2019-07-08 09:29] VITALS: BP 114/78
[2019-07-08] MEDS: OXYCODONE HCL 5 MG TABLET PO PRN ×2 (12:15→18:14)
[2019-07-08] MEDS: MAG HYDROX/AL HYDROX/SIMETH 30 ML LIQUID UDC PO PRN (13:15)
[2019-07-08] MEDS: BUDESONIDE 0.5 MG/2 ML NEBU NEB SCH ×2 (13:20→21:10)
[2019-07-08 16:50] VITALS: BP 133/74
[2019-07-08 20:00] VITALS: BP 137/77
[2019-07-08] MEDS: EZETIMIBE 10 MG TABLET PO SCH (20:19)
[2019-07-08] MEDS: ATORVASTATIN 20 MG TABLET PO SCH (20:20)
[2019-07-08] MEDS: TRAZODONE 100 MG TABLET PO SCH (20:20)
[2019-07-08] MEDS: OLANZAPINE 5 MG TABLET PO SCH (20:20)
[2019-07-09 05:26] VITALS: BP 99/49
[2019-07-09] MEDS: PANTOPRAZOLE SODIUM 40 MG TABLET.DR PO SCH (06:26)
[2019-07-09] MEDS: BUDESONIDE 0.5 MG/2 ML NEBU NEB SCH ×2 (07:30→19:30)
[2019-07-09] MEDS: ALBUTEROL SULFATE 2.5 MG/ 0.5 ML NEBU NEB SCH ×3 (07:35→19:30)
[2019-07-09] MEDS: IPRATROPIUM BROMIDE 0.5 MG/2.5 ML NEBU NEB SCH ×3 (07:35→19:30)
[2019-07-09] MEDS: MULTIVITAMINS,THERAPEUTIC TABLET PO SCH (08:58)
[2019-07-09] MEDS: DOCUSATE SODIUM 100 MG CAPSULE PO SCH ×2 (08:58→20:58)
[2019-07-09] MEDS: ASPIRIN EC 81 MG TABLET.DR PO SCH (08:58)
[2019-07-09] MEDS: FLUTICASONE/VILANTEROL 1 EACH BLST.W.DEV INH SCH (08:59)
[2019-07-09] MEDS: DULOXETINE 60 MG CAPSULE.DR PO SCH (08:59)
[2019-07-09] MEDS: MIRALAX 17 GM POWD.PACK PO SCH (09:00)
[2019-07-09] MEDS: METHADONE HCL 10 MG TABLET PO SCH ×2 (09:04→20:56)
[2019-07-09] MEDS: OXYCODONE HCL 5 MG TABLET PO PRN ×2 (12:07→17:06)
[2019-07-09] MEDS: ATORVASTATIN 20 MG TABLET PO SCH (20:56)
[2019-07-09] MEDS: EZETIMIBE 10 MG TABLET PO SCH (20:56)
[2019-07-09] MEDS: TRAZODONE 100 MG TABLET PO SCH (20:56)
[2019-07-09] MEDS: OLANZAPINE 5 MG TABLET PO SCH (20:56)
[2019-07-09 21:32] VITALS: BP 116/71
[2019-07-10 05:39] VITALS: BP 104/84
[2019-07-10] MEDS: PANTOPRAZOLE SODIUM 40 MG TABLET.DR PO SCH (06:20)
[2019-07-10 07:30] VITALS: BP 150/88
[2019-07-10] MEDS: BUDESONIDE 0.5 MG/2 ML NEBU NEB SCH ×2 (08:32→21:28)
[2019-07-10] MEDS: IPRATROPIUM BROMIDE 0.5 MG/2.5 ML NEBU NEB SCH ×3 (08:32→21:28)
[2019-07-10] MEDS: ALBUTEROL SULFATE 2.5 MG/ 0.5 ML NEBU NEB SCH ×3 (08:32→21:28)
[2019-07-10] MEDS: DULOXETINE 60 MG CAPSULE.DR PO SCH (08:58)
[2019-07-10] MEDS: MULTIVITAMINS,THERAPEUTIC TABLET PO SCH (08:58)
[2019-07-10] MEDS: ASPIRIN EC 81 MG TABLET.DR PO SCH (08:58)
[2019-07-10] MEDS: DOCUSATE SODIUM 100 MG CAPSULE PO SCH ×2 (09:00→21:00)
[2019-07-10] MEDS: MIRALAX 17 GM POWD.PACK PO SCH (09:00)
[2019-07-10] MEDS: FLUTICASONE/VILANTEROL 1 EACH BLST.W.DEV INH SCH (09:00)
[2019-07-10] MEDS: METHADONE HCL 10 MG TABLET PO SCH ×2 (09:00→21:16)
[2019-07-10] MEDS: OXYCODONE HCL 5 MG TABLET PO PRN ×2 (12:55→22:44)
[2019-07-10 16:57] VITALS: BP 119/57
[2019-07-10 19:35] VITALS: BP 140/65
[2019-07-10] MEDS: EZETIMIBE 10 MG TABLET PO SCH (21:11)
[2019-07-10] MEDS: OLANZAPINE 5 MG TABLET PO SCH (21:11)
[2019-07-10] MEDS: TRAZODONE 100 MG TABLET PO SCH (21:11)
[2019-07-10] MEDS: ATORVASTATIN 20 MG TABLET PO SCH (21:15)
[2019-07-11 04:55] VITALS: BP 112/68
[2019-07-11] MEDS: PANTOPRAZOLE SODIUM 40 MG TABLET.DR PO SCH (06:59)
[2019-07-11] MEDS: BUDESONIDE 0.5 MG/2 ML NEBU NEB SCH ×2 (07:30→21:19)
[2019-07-11] MEDS: IPRATROPIUM BROMIDE 0.5 MG/2.5 ML NEBU NEB SCH ×3 (07:35→21:18)
[2019-07-11] MEDS: ALBUTEROL SULFATE 2.5 MG/ 0.5 ML NEBU NEB SCH ×3 (07:35→21:19)
[2019-07-11 07:45] VITALS: BP 110/57
[2019-07-11] MEDS: MULTIVITAMINS,THERAPEUTIC TABLET PO SCH (08:33)
[2019-07-11] MEDS: DULOXETINE 60 MG CAPSULE.DR PO SCH (08:33)
[2019-07-11] MEDS: ASPIRIN EC 81 MG TABLET.DR PO SCH (08:33)
[2019-07-11] MEDS: METHADONE HCL 10 MG TABLET PO SCH ×2 (08:34→22:25)
[2019-07-11] MEDS: DOCUSATE SODIUM 100 MG CAPSULE PO SCH ×2 (09:00→22:26)
[2019-07-11] MEDS: MIRALAX 17 GM POWD.PACK PO SCH (09:00)
[2019-07-11] MEDS: FLUTICASONE/VILANTEROL 1 EACH BLST.W.DEV INH SCH (09:35)
[2019-07-11 16:00] VITALS: BP 132/72
[2019-07-11] MEDS: OXYCODONE HCL 5 MG TABLET PO PRN (17:00)
[2019-07-11] MEDS: ATORVASTATIN 20 MG TABLET PO SCH (22:26)
[2019-07-11] MEDS: OLANZAPINE 5 MG TABLET PO SCH (22:26)
[2019-07-11] MEDS: EZETIMIBE 10 MG TABLET PO SCH (22:26)
[2019-07-11] MEDS: TRAZODONE 100 MG TABLET PO SCH (22:26)
[2019-07-12] MEDS ORDERED: ZOLPIDEM 5 MG TABLET PO SCH (00:30)
[2019-07-12] MEDS: PANTOPRAZOLE SODIUM 40 MG TABLET.DR PO SCH (06:35)
[2019-07-12] MEDS: OXYCODONE HCL 5 MG TABLET PO PRN ×2 (06:36→18:34)
[2019-07-12] MEDS: BUDESONIDE 0.5 MG/2 ML NEBU NEB SCH ×2 (07:30→20:29)
[2019-07-12] MEDS: ALBUTEROL SULFATE 2.5 MG/ 0.5 ML NEBU NEB SCH ×3 (07:35→20:29)
[2019-07-12] MEDS: IPRATROPIUM BROMIDE 0.5 MG/2.5 ML NEBU NEB SCH ×3 (07:35→20:29)
[2019-07-12] MEDS: MIRALAX 17 GM POWD.PACK PO SCH (09:00)
[2019-07-12] MEDS: FLUTICASONE/VILANTEROL 1 EACH BLST.W.DEV INH SCH (09:00)
[2019-07-12] MEDS: DOCUSATE SODIUM 100 MG CAPSULE PO SCH (09:00)
[2019-07-12] MEDS: DULOXETINE 60 MG CAPSULE.DR PO SCH (09:57)
[2019-07-12] MEDS: MULTIVITAMINS,THERAPEUTIC TABLET PO SCH (09:57)
[2019-07-12] MEDS: METHADONE HCL 10 MG TABLET PO SCH ×2 (09:57→20:21)
[2019-07-12] MEDS: ASPIRIN EC 81 MG TABLET.DR PO SCH (09:57)
[2019-07-12 15:58] VITALS: BP 162/82
[2019-07-12] MEDS: OLANZAPINE 5 MG TABLET PO SCH (20:21)
[2019-07-12] MEDS: ATORVASTATIN 20 MG TABLET PO SCH (20:22)
[2019-07-12] MEDS: EZETIMIBE 10 MG TABLET PO SCH (20:22)
[2019-07-12] MEDS: TRAZODONE 100 MG TABLET PO SCH (20:26)
[2019-07-12 20:59] VITALS: BP 121/76
[2019-07-13 05:53] VITALS: BP 130/74
[2019-07-13] MEDS: PANTOPRAZOLE SODIUM 40 MG TABLET.DR PO SCH (06:44)
[2019-07-13] MEDS: OXYCODONE HCL 5 MG TABLET PO PRN ×2 (06:44→10:26)
[2019-07-13] MEDS: ALBUTEROL SULFATE 2.5 MG/ 0.5 ML NEBU NEB SCH ×3 (08:00→19:04)
[2019-07-13] MEDS: BUDESONIDE 0.5 MG/2 ML NEBU NEB SCH ×2 (08:00→19:04)
[2019-07-13] MEDS: IPRATROPIUM BROMIDE 0.5 MG/2.5 ML NEBU NEB SCH ×3 (08:00→19:04)
[2019-07-13] MEDS: METHADONE HCL 10 MG TABLET PO SCH ×2 (09:37→21:05)
[2019-07-13] MEDS: MULTIVITAMINS,THERAPEUTIC TABLET PO SCH (09:37)
[2019-07-13] MEDS: ASPIRIN EC 81 MG TABLET.DR PO SCH (09:37)
[2019-07-13] MEDS: FLUTICASONE/VILANTEROL 1 EACH BLST.W.DEV INH SCH (09:37)
[2019-07-13] MEDS: MIRALAX 17 GM POWD.PACK PO SCH (09:37)
[2019-07-13] MEDS: DULOXETINE 60 MG CAPSULE.DR PO SCH (09:37)
[2019-07-13 16:53] VITALS: BP 122/60
[2019-07-13] MEDS: OLANZAPINE 5 MG TABLET PO SCH (21:04)
[2019-07-13] MEDS: EZETIMIBE 10 MG TABLET PO SCH (21:04)
[2019-07-13] MEDS: ATORVASTATIN 20 MG TABLET PO SCH (21:05)
[2019-07-13] MEDS: TRAZODONE 100 MG TABLET PO SCH (21:05)
[2019-07-13 21:07] VITALS: BP 113/67
[2019-07-13] MEDS: ZOLPIDEM 5 MG TABLET PO PRN (22:54)
[2019-07-14] MEDS: PANTOPRAZOLE SODIUM 40 MG TABLET.DR PO SCH (06:23)
[2019-07-14] MEDS: BUDESONIDE 0.5 MG/2 ML NEBU NEB SCH ×3 (08:45→20:06)
[2019-07-14] MEDS: IPRATROPIUM BROMIDE 0.5 MG/2.5 ML NEBU NEB SCH ×3 (08:45→20:07)
[2019-07-14] MEDS: ALBUTEROL SULFATE 2.5 MG/ 0.5 ML NEBU NEB SCH ×3 (08:45→20:07)
[2019-07-14] MEDS: MULTIVITAMINS,THERAPEUTIC TABLET PO SCH (09:01)
[2019-07-14] MEDS: ASPIRIN EC 81 MG TABLET.DR PO SCH (09:01)
[2019-07-14] MEDS: DULOXETINE 60 MG CAPSULE.DR PO SCH (09:01)
[2019-07-14] MEDS: FLUTICASONE/VILANTEROL 1 EACH BLST.W.DEV INH SCH (09:01)
[2019-07-14] MEDS: METHADONE HCL 10 MG TABLET PO SCH ×2 (09:01→20:06)
[2019-07-14] MEDS: MIRALAX 17 GM POWD.PACK PO SCH (09:02)
[2019-07-14] MEDS: OXYCODONE HCL 5 MG TABLET PO PRN ×2 (12:08→17:35)
[2019-07-14] MEDS: EZETIMIBE 10 MG TABLET PO SCH (20:05)
[2019-07-14] MEDS: TRAZODONE 100 MG TABLET PO SCH (20:06)
[2019-07-14] MEDS: OLANZAPINE 5 MG TABLET PO SCH (20:06)
[2019-07-14] MEDS: ATORVASTATIN 20 MG TABLET PO SCH (20:06)
[2019-07-14 21:16] VITALS: BP 121/74
[2019-07-15 04:30] VITALS: BP 95/41
[2019-07-15] MEDS: PANTOPRAZOLE SODIUM 40 MG TABLET.DR PO SCH (06:21)
[2019-07-15] MEDS: ALBUTEROL SULFATE 2.5 MG/ 0.5 ML NEBU NEB SCH ×3 (08:22→19:01)
[2019-07-15] MEDS: IPRATROPIUM BROMIDE 0.5 MG/2.5 ML NEBU NEB SCH ×3 (08:22→19:01)
[2019-07-15] MEDS: BUDESONIDE 0.5 MG/2 ML NEBU NEB SCH ×2 (08:22→19:01)
[2019-07-15] MEDS: MIRALAX 17 GM POWD.PACK PO SCH (09:03)
[2019-07-15] MEDS: FLUTICASONE/VILANTEROL 1 EACH BLST.W.DEV INH SCH (09:03)
[2019-07-15] MEDS: DULOXETINE 60 MG CAPSULE.DR PO SCH (09:04)
[2019-07-15] MEDS: MULTIVITAMINS,THERAPEUTIC TABLET PO SCH (09:04)
[2019-07-15] MEDS: METHADONE HCL 10 MG TABLET PO SCH ×2 (09:04→20:41)
[2019-07-15] MEDS: ASPIRIN EC 81 MG TABLET.DR PO SCH (09:04)
[2019-07-15] MEDS: OXYCODONE HCL 5 MG TABLET PO PRN (17:08)
[2019-07-15 20:34] VITALS: BP 132/64
[2019-07-15] MEDS: EZETIMIBE 10 MG TABLET PO SCH (20:37)
[2019-07-15] MEDS: ATORVASTATIN 20 MG TABLET PO SCH (20:37)
[2019-07-15] MEDS: OLANZAPINE 5 MG TABLET PO SCH (20:37)
[2019-07-15] MEDS: TRAZODONE 100 MG TABLET PO SCH (20:37)
[2019-07-16] MEDS: PANTOPRAZOLE SODIUM 40 MG TABLET.DR PO SCH (06:31)
[2019-07-16] MEDS: OXYCODONE HCL 5 MG TABLET PO PRN ×2 (07:20→12:49)
[2019-07-16 07:51] VITALS: BP 107/49
[2019-07-16] MEDS: BUDESONIDE 0.5 MG/2 ML NEBU NEB SCH ×2 (08:17→19:40)
[2019-07-16] MEDS: ALBUTEROL SULFATE 2.5 MG/ 0.5 ML NEBU NEB SCH ×3 (08:17→19:40)
[2019-07-16] MEDS: IPRATROPIUM BROMIDE 0.5 MG/2.5 ML NEBU NEB SCH ×3 (08:17→19:40)
[2019-07-16] MEDS: MIRALAX 17 GM POWD.PACK PO SCH (09:11)
[2019-07-16] MEDS: DULOXETINE 60 MG CAPSULE.DR PO SCH (09:11)
[2019-07-16] MEDS: MULTIVITAMINS,THERAPEUTIC TABLET PO SCH (09:11)
[2019-07-16] MEDS: FLUTICASONE/VILANTEROL 1 EACH BLST.W.DEV INH SCH (09:11)
[2019-07-16] MEDS: ASPIRIN EC 81 MG TABLET.DR PO SCH (09:11)
[2019-07-16] MEDS: METHADONE HCL 10 MG TABLET PO SCH ×2 (09:20→20:58)
[2019-07-16 15:47] VITALS: BP 128/72
[2019-07-16] MEDS: EZETIMIBE 10 MG TABLET PO SCH (20:56)
[2019-07-16] MEDS: OLANZAPINE 5 MG TABLET PO SCH (20:56)
[2019-07-16] MEDS: TRAZODONE 100 MG TABLET PO SCH (20:57)
[2019-07-16] MEDS: ATORVASTATIN 20 MG TABLET PO SCH (20:57)
[2019-07-16 22:20] VITALS: BP 135/80
[2019-07-17] MEDS: ZOLPIDEM 5 MG TABLET PO PRN (00:34)
[2019-07-17] MEDS: PANTOPRAZOLE SODIUM 40 MG TABLET.DR PO SCH (06:32)
[2019-07-17] MEDS: OXYCODONE HCL 5 MG TABLET PO PRN (06:35)
[2019-07-17 06:42] VITALS: BP 100/52
[2019-07-17] MEDS: BUDESONIDE 0.5 MG/2 ML NEBU NEB SCH (07:30)
[2019-07-17] MEDS: IPRATROPIUM BROMIDE 0.5 MG/2.5 ML NEBU NEB SCH (07:35)
[2019-07-17] MEDS: ALBUTEROL SULFATE 2.5 MG/ 0.5 ML NEBU NEB SCH (07:35)
[2019-07-17] MEDS: MIRALAX 17 GM POWD.PACK PO SCH (09:00)
[2019-07-17] MEDS: FLUTICASONE/VILANTEROL 1 EACH BLST.W.DEV INH SCH (09:16)
[2019-07-17] MEDS: DULOXETINE 60 MG CAPSULE.DR PO SCH (09:17)
[2019-07-17] MEDS: MULTIVITAMINS,THERAPEUTIC TABLET PO SCH (09:17)
[2019-07-17] MEDS: ASPIRIN EC 81 MG TABLET.DR PO SCH (09:17)
[2019-07-17] MEDS: METHADONE HCL 10 MG TABLET PO SCH (09:17)
[2019-07-17 09:30] VITALS: BP 138/70
== END 2019-07-17 11:00 | disposition home health service (06) | DRG 552 ==
PROVIDERS: ADMIT Physical Medicine & Rehabilitation Pain Medicine; ATTEND Physical Medicine & Rehabilitation Pain Medicine
DX: M51.16 Intervertebral disc disorders with radiculopathy, lumbar region (principal); D68.59 Other primary thrombophilia; R53.1 Weakness; M50.10 Cervical disc disorder with radiculopathy, unspecified cervical region; E03.9 Hypothyroidism, unspecified; M48.061 Spinal stenosis, lumbar region without neurogenic claudication; F32.9 Major depressive disorder, single episode, unspecified; F41.9 Anxiety disorder, unspecified; G89.4 Chronic pain syndrome; M17.0 Bilateral primary osteoarthritis of knee; J44.9 Chronic obstructive pulmonary disease, unspecified; R29.6 Repeated falls; Z79.891 Long term (current) use of opiate analgesic; D72.829 Elevated white blood cell count, unspecified; E78.5 Hyperlipidemia, unspecified; R10.13 Epigastric pain; F17.210 Nicotine dependence, cigarettes, uncomplicated; F45.9 Somatoform disorder, unspecified; M67.813 Other specified disorders of tendon, right shoulder; M67.814 Other specified disorders of tendon, left shoulder; K21.9 Gastro-esophageal reflux disease without esophagitis; K56.41 Fecal impaction; K64.8 Other hemorrhoids; K83.8 Other specified diseases of biliary tract; M19.012 Primary osteoarthritis, left shoulder; M47.26 Other spondylosis with radiculopathy, lumbar region; M75.02 Adhesive capsulitis of left shoulder; M79.7 Fibromyalgia; Z87.01 Personal history of pneumonia (recurrent); Z91.81 History of falling; R53.81 Other malaise; R68.2 Dry mouth, unspecified; R97.20 Elevated prostate specific antigen [PSA]
CPT/HCPCS: 36415; 70030-TC; 70486; 71045; 71046; 71270; 72131; 73030; 73501; 74018; 82378; 82652; 82784; 82785; 83735; 84100; 84153; 84155; 84165; 84403; 84443; 84481; 85025; 85610; 85651; 86038; 86606; 87070; 87328; 87400; 87806; 93005; 94640; A4663; J1650; J3301; J3490; J3590